=== PATIENT | male | born 1955 | race Caucasian/White ===

== ENCOUNTER 2020-08-24 08:38 | Outpatient (NON) | payer MEDICARE, BC, SELFPAY ==
[2020-08-25 18:45] LABS: SARS-CoV-2 RNA PCR Negative
== END 2020-08-24 08:39 ==
PROVIDERS: PCP Family Medicine; Visit Provider Family Medicine
DX: R68.89 Other general symptoms and signs (principal); Z20.828 Contact with and (suspected) exposure to other viral communicable diseases
CPT/HCPCS: 87635; C9803; U0003

== ENCOUNTER → 2021-03-16 09:28 | Outpatient (CLI) | payer MEDICARE, SELFPAY ==
--- NOTE | ~2021-03-16 | US_ITS ---
US breast BI complete 03/16/2021 10:01 Indication: Mastodynia. No palpable lumps. Procedure: High-resolution bilateral complete breast ultrasound Comparison: No prior studies for comparison. Findings: There is bilateral asymmetric gynecomastia of the breasts, left greater than right. No disc rete mass identified. Impression: 1: Bilateral asymmetric gynecomastia. No sonographic evidence for malignancy. BI-RADS CATEGORY 2 - BENIGN FINDINGS Reviewed, dictated and finalized at location A. Impression: 1: Bilateral asymmetric gynecomastia. No sonographic evidence for malignancy. BI-RADS CATEGORY 2 - BENIGN FINDINGS
== END ==
PROVIDERS: PCP Family Medicine; Visit Provider Physician Assistant
DX: N64.4 Mastodynia (principal)
CPT/HCPCS: 76641

== ENCOUNTER → 2021-04-08 15:28 | Outpatient (CLI) | payer MEDICARE, SELFPAY ==
--- NOTE | ~2021-04-08 | US_ITS ---
EXAMINATION: US scrotum doppler DATE: 04/08/2021 16:05 INDICATION: Orchialgia TECHNIQUE: Testicular sonogram utilizing grayscale and Doppler COMPARISON: None. FINDINGS: The right testis measures 4.9 x 2.2 x 2.5 cm. The left testis measures 3.9 x 2.0 x 2.5 cm. Symmetric normal grayscale appearance to both testes. There is normal vascular flow to both testes. The right e pididymis is normal with normal vascular flow. The left epididymis is normal with normal vascular christina w. Small right hydrocele. IMPRESSION: 1. Small right hydrocele. Normal bilateral testes and epididymides. Reviewed, dictated and finalized at location A.
== END ==
PROVIDERS: PCP Family Medicine; Visit Provider Urology
DX: N50.819 Testicular pain, unspecified (principal); N43.3 Hydrocele, unspecified
CPT/HCPCS: 76870; 93976

== ENCOUNTER 2021-12-17 23:32 | Emergency (ER) | payer MEDICARE, SELFPAY ==
[2021-12-17 23:35] VITALS: BP 151/78; PULSE 59; RESP 14; TEMP 36.5; O2SAT 97
[2021-12-17 23:56] LABS: Add Urine Microscopic? NO; Appearance Urine Clear (Clear); Bilirubin Urine Negative (Negative); Blood Urine Negative (Negative); Color Urine Straw (Yellow); Glucose Urine UA Negative (Negative); Ketones Urine Negative (Negative); Leukocyte Esterase Ur Negative LEU/UL (Negative); Nitrate Urine Negative (Negative); Protein Urine Negative (Negative); Specific Grav Ur 1.008 (1.001-1.035); Urobilinogen Urine Negative mg/dL (<2.0)
--- NOTE | 2021-12-18 00:15 | ED.MALEGU ---
HPI - Male Genitourinary General Chief complaint: Urogenital-Male Stated complaint: UTI? Time Seen by Provider: 12/17/21 23:35 History of Present Illness HPI Narrative: 66-year-old male presented to the emergency room for evaluation of dysuria. Patient states that he has had some painful urination for the past 3 days. Denies abdominal pain, fever, testicular pain. No concerns over STDs. Patient states he was seen in his primary care physician on Monday, and had a digital rectal exam to evaluate his prostate. Patient was told during that exam that is stable appeared to be normal. Patient denies any hematuria or purulent drainage. Related Data Home Medications Medication Instructions Recorded Confirmed clonazepam 2 mg tablet See Rx Instructions PO DAILY 10/29/19 12/06/21 gabapentin 300 mg capsule 300 mg PO BID 10/29/19 12/06/21 Allergies Allergy/AdvReac Type Severity Reaction Status Date / Time tetracycline Allergy Unknown pancreatiti Verified 12/06/21 14:52 s Review of Systems Review of Systems: CONSTITUTIONAL: Denies fever, chills, or sweats. EYES: Denies visual changes, redness, or discharge. ENT: Denies rhinorrhea, congestion, sore throat, or otalgia. CARDIOVASCULAR: Denies chest pain, palpitations, or edema. RESPIRATORY: Denies cough or dyspnea. GASTROINTESTINAL: Denies abdominal pain, nausea, vomiting, or diarrhea. GENITOURINARY: Reports dysuria SKIN: Denies rash or itching. MUSCULOSKELETAL: Denies back pain, joint pain, or myalgia. NEUROLOGIC: Denies headache, numbness, dizziness, or weakness. PSYCHIATRIC: Denies anxiety or depression. [facility] Surgical History Surgical History H/O arthroscopic knee surgery H/O hernia repair History of hip replacement History of knee replacement History of vasectomy Family History Family History Father Family history of thyroid disease, Onset Age: 93 Depression, Onset Age: 93 Family history of arthritis, Onset Age: 93 Family history of dementia, Onset Age: 93 Sibling Family history of mental disorder Depression Mother Family history of cardiovascular disease, Onset Age: 92 Other Cerebrovascular accident Social History Social History Second hand tobacco smoke exposure: No Alcohol intake: never Substance use: never Substance use type: does not use Gender identity (if verbalized by the patient): Male Exam Narrative: GENERAL: Well-appearing, well-nourished, and in no acute distress. HEAD: Normocephalic, atraumatic. EYES: PERRLA and EOMI. CHEST: Clear to auscultation. No respiratory distress. No wheezes rales or rhonchi HEART: Regular rate and rhythm. No murmur heard. Normal peripheral pulses. ABDOMEN: Soft, nontender, nondistended, normal active bowel sounds. No suprapubic tenderness EXTREMITIES: Normal range of motion. No edema. SKIN: Warm, dry, no rash. NEURO: No focal deficits. Alert and oriented x3. PSYCH: Normal mood and affect. Course Vital Signs Vital signs: Vital Signs Temperature 36.5 C 12/17/21 23:35 Pulse Rate 59 L 12/17/21 23:35 Respiratory Rate 14 12/17/21 23:35 Blood Pressure 151/78 H 12/17/21 23:35 Pulse Oximetry 97 12/17/21 23:35 Temperature 36.5 C 12/17/21 23:35 Pulse Rate 59 L 12/17/21 23:35 Respiratory Rate 14 12/17/21 23:35 Blood Pressure 151/78 H 12/17/21 23:35 Pulse Oximetry 97 12/17/21 23:35 MDM - Male Genitourinary MDM Narrative Medical decision making narrative: 66-year-old male presented to emergency room for evaluation of dysuria which have been present for 3 days. Patient states that he had a prostate exam 5 days ago, and has primary care physician was found to be normal. Patient states he is experiencing mild dysuria prior to initiation of urination and ceases before he complet
[2021-12-18 01:11] LABS: Prostate Specific Antigen 3.4 ng/mL (< OR = 4.0)
[2021-12-18] MEDS: TAMSULOSIN HCL 0.4 MG CAPSULE PO (01:27)
== END 2021-12-18 01:30 | disposition home or self-care (01) ==
PROVIDERS: Emergency Provider Nurse Practitioner Family; PCP Family Medicine
DX: R30.0 Dysuria (principal); Z96.649 Presence of unspecified artificial hip joint; Z96.659 Presence of unspecified artificial knee joint
CPT/HCPCS: 36415; 81003; 84153; 99283; A9270

== ENCOUNTER 2022-02-24 11:08 | Emergency (ER) | payer MEDICARE, SELFPAY ==
[2022-02-24] VITALS (13 sets, daily range): BP systolic 103–123; BP diastolic 60–80; PULSE 39–49; RESP 11–20; TEMP 36.6; O2SAT 96–99
--- NOTE | ~2022-02-24 | XR_ITS ---
EXAMINATION: XR chest 2V 02/24/2022 13:08 INDICATION: Syncope and weakness. PROCEDURE: 2 view chest COMPARISON: 10/12/2018 FINDINGS: The lungs are clear. The cardiomediastinal silhouette is within normal limits. There are no pleural effusions. There is no pneumothorax suspected. IMPRESSION: 1: NO ACUTE CARDIOPULMONARY DISEASE. Reviewed, dictated and finalized at location A.
--- NOTE | 2022-02-24 11:14 | ECG_ITS ---
Measurements Intervals [place] Rate: 45 P: 11 NM: 168 QRS: 3 QRSD: 99 T: 6 QT: 418 QTc: 362 Interpretive Statements SINUS BRADYCARDIA MODERATE VOLTAGE CRITERIA FOR LVH, CONSIDER NORMAL VARIANT [MEETS CRITERIA IN ONE OF: R(aVL), S(V1), R(V5), R(V5/V6)+S(V1)] NO PREVIOUS ECG AVAILABLE FOR COMPARISON Electronically Signed On 02-24-2022 18:06:26 CDT by Precious Pryor M.D.
[2022-02-24 11:31] LABS: Basophils Percent Auto 0.5 % (0.2-1.2); Eosinophils Absolute Auto 0.2 K/mm3 (0-0.3); Eosinophils Percent Auto 2.5 % (0-4.4); Hematocrit 41.9 % (42.0-52.0); Hemoglobin 13.7 g/dL (14.0-18.0); Immature Granulocyte Absolute 0.02 K/mm3 (0.00-0.031); Immature Granulocyte Percent A 0.2 % (0-0.5); Lymphocytes Absolute Auto 1.42 K/mm3 (0.9-3.2); Lymphocytes Percent Auto 16.4 % (18.3-44.2); Mean Corpuscular HGB Conc 32.7 g/dl (32-36); Mean Corpuscular Hemoglobin 29.8 pg (26-34); Mean Corpuscular Volume 91.1 fl (80-100); Mean Platelet Volume 10.6 fl (7.4-10.4); Monocytes Absolute Auto 0.6 K/mm3 (0.1-0.6); Monocytes Percent Auto 6.5 % (2.6-8.5); Neutrophils Absolute Auto 6.4 K/mm3 (1.3-6.7); Neutrophils Percent Auto 73.9 % (45.5-73.1); Platelet Count Result 163 k/mm3 (150-375); Red Cell Distribution Width 14.5 % (11.5-14.5); White Blood Count 8.6 K/mm3 (4.5-10.0)
[2022-02-24 11:41] LABS: Alanine Aminotransferase 21 U/L (6-50); Albumin Level 4.1 g/dL (3.5-5.1); Alkaline Phosphatase 72 U/L (38-126); Anion Gap 7 mmol/L (8-16); Aspartate Amino Transferase 25 U/L (17-59); Bilirubin,Total 1.2 mg/dL (0.2-1.3); Blood Urea Nitrogen 22 mg/dL (9-20); Calcium 8.6 mg/dL (8.4-10.2); Carbon Dioxide 26 mmol/L (22-30); Chloride 106 mmol/L (98-107); Estimated CRCL calculation 53 ml/min; Estimated Glomerular Filt Rate 55; Glucose 95 mg/dL (65-110); Potassium 4.2 mmol/L (3.4-5.0); Sodium 139 mmol/L (137-145)
--- NOTE | 2022-02-24 12:31 | ED.SYNCOPE ---
HPI - Syncope General Chief Complaint: Syncope Stated Complaint: syncopal episode? Time Seen by Provider: 02/24/22 12:12 Source: patient Mode of arrival: ambulatory History of Present Illness HPI narrative: This is a 66-year-old male past medical history of rheumatoid arthritis who presents after a syncopal episode today. 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 Patient states he woke up on the floor, did not have any pain, and was able to return to his normal self, including standing on his own from the floor and walking. This is the first time this has happened. He states he does have intermittent episodes of lightheadedness with standing. He is otherwise tolerating food and fluids without difficulty and denies recent illness. He recent fevers, chills, chest pain, shortness of breath, bleeding from any source, diarrhea or vomiting. Related Data Home Medications Medication Instructions Recorded Confirmed clonazepam 2 mg tablet See Rx Instructions PO DAILY 10/29/19 12/20/21 gabapentin 300 mg capsule 300 mg PO BID 10/29/19 12/20/21 tizanidine 4 mg tablet 4 mg 02/24/22 Allergies Allergy/AdvReac Type Severity Reaction Status Date / Time tetracycline Allergy Unknown pancreatiti Verified 02/24/22 12:11 s Review of Systems Review of Systems: CONSTITUTIONAL: Denies fever, chills, or sweats. EYES: Denies visual changes, redness, or discharge. ENT: Denies rhinorrhea, congestion, sore throat, or otalgia. CARDIOVASCULAR: Denies chest pain, palpitations, or edema. RESPIRATORY: Denies cough or dyspnea. GASTROINTESTINAL: Denies abdominal pain, nausea, vomiting, or diarrhea. GENITOURINARY: Denies dysuria or hematuria. MUSCULOSKELETAL: Denies back pain, joint pain, or myalgia. NEUROLOGIC: Denies headache, numbness, dizziness, or weakness. PSYCHIATRIC: Denies anxiety or depression. [facility] Past Medical History Medical History (Updated 02/24/22 @ 21:58 by Dontae Peters MD) Benign positional vertigo Body mass index [BMI] 25.0-25.9, adult (03/26/19) Tic disorder, unspecified Surgical History Surgical History H/O arthroscopic knee surgery H/O hernia repair History of hip replacement History of knee replacement History of vasectomy Family History Family History Father Family history of thyroid disease, Onset Age: 93 Depression, Onset Age: 93 Family history of arthritis, Onset Age: 93 Family history of dementia, Onset Age: 93 Sibling Family history of mental disorder Depression Mother Family history of cardiovascular disease, Onset Age: 92 Other Cerebrovascular accident Social History Social History Second hand tobacco smoke exposure: No Alcohol intake: never Substance use: never Substance use type: does not use Gender identity (if verbalized by the patient): Male Exam Narrative: GENERAL: Well-appearing, well-nourished, and in no acute distress. HEAD: Normocephalic, atraumatic. EYES: PERRLA and EOMI. ENT: Nares clear, no rhinorrhea or epistaxis. Mucous membranes moist. Oropharynx without tonsillar hypertrophy exudate or other lesions. NECK: Supple. No midline spine tenderness to palpation, no adenopathy or masses. No carotid bruits or JVD CHEST: Clear to auscultation. No respiratory distress. No wheezes rales or rhonchi HEART: Regular rate and rhythm. No murmur heard. Normal peripheral pulses. ABDOMEN: Soft, nontender, nondistended, normal active bowel sounds. EXTREMITIES: Normal range of motion. No edema. SKIN: Warm, dry, no rash. NEURO: No focal deficits. Alert and oriented x3. PSYCH: Normal mood and affect. Course Vital Signs Vital signs: Vital Signs Temperat
[2022-02-24 12:44] LABS: Add Urine Microscopic? NO; Appearance Urine Clear (Clear); Bilirubin Urine Negative (Negative); Blood Urine Negative (Negative); Color Urine Yellow (Yellow); Glucose Urine UA Negative (Negative); Ketones Urine Negative (Negative); Leukocyte Esterase Ur Negative LEU/UL (Negative); Nitrate Urine Negative (Negative); Protein Urine Negative (Negative); Specific Grav Ur 1.015 (1.001-1.035); Urobilinogen Urine 0.2 mg/dL (<2.0); pH Urine 6.5 (5.0-9.0)
[2022-02-24] MEDS: SODIUM CHLORIDE 0.9% IV 1,000 ML 999 ML IV CONT (12:51)
== END 2022-02-24 15:12 | disposition home or self-care (01) ==
PROVIDERS: Emergency Medicine; Emergency Provider Preventive Medicine Aerospace Medicine; PCP Family Medicine
DX: R55 Syncope and collapse (principal); E86.0 Dehydration; M06.9 Rheumatoid arthritis, unspecified; F95.9 Tic disorder, unspecified; Z96.649 Presence of unspecified artificial hip joint; Z96.659 Presence of unspecified artificial knee joint; R00.1 Bradycardia, unspecified
CPT/HCPCS: 36415; 71046; 80053; 81003; 85025; 93005; 96360; 99284; J7030

== ENCOUNTER 2022-06-06 15:45 | Outpatient (CLI) | payer MEDICARE, SELFPAY ==
[2022-06-06 16:00] LABS: Basophils Absolute Auto 0.1 K/mm3 (0.0-0.1); Basophils Percent Auto 0.8 % (0.2-1.2); Eosinophils Absolute Auto 0.8 K/mm3 (0-0.3); Eosinophils Percent Auto 13.5 % (0-4.4); Hematocrit 44.4 % (42.0-52.0); Hemoglobin 14.6 g/dL (14.0-18.0); Immature Granulocyte Absolute 0.02 K/mm3 (0.00-0.031); Immature Granulocyte Percent A 0.3 % (0-0.5); Lymphocytes Absolute Auto 1.39 K/mm3 (0.9-3.2); Lymphocytes Percent Auto 23.2 % (18.3-44.2); Mean Corpuscular HGB Conc 32.9 g/dl (32-36); Mean Corpuscular Hemoglobin 29.7 pg (26-34); Mean Corpuscular Volume 90.4 fl (80-100); Mean Platelet Volume 9.8 fl (7.4-10.4); Monocytes Absolute Auto 0.5 K/mm3 (0.1-0.6); Monocytes Percent Auto 7.8 % (2.6-8.5); Neutrophils Absolute Auto 3.3 K/mm3 (1.3-6.7); Neutrophils Percent Auto 54.4 % (45.5-73.1); Platelet Count Result 189 k/mm3 (150-375); Red Blood Count 4.91 M/mm3 (4.6-6.20)
[2022-06-06 16:34] LABS: Alanine Aminotransferase 77 U/L (6-50); Albumin Level 4.6 g/dL (3.5-5.1); Alkaline Phosphatase 132 U/L (38-126); Anion Gap 7 mmol/L (8-16); Aspartate Amino Transferase 111 U/L (17-59); Bilirubin,Total 0.7 mg/dL (0.2-1.3); Blood Urea Nitrogen 25 mg/dL (9-20); Calcium 9.4 mg/dL (8.4-10.2); Carbon Dioxide 33 mmol/L (22-30); Chloride 102 mmol/L (98-107); Estimated Glomerular Filt Rate 51; Glucose 99 mg/dL (65-110); Lactate Dehydrogenase 212 U/L (120-246); Potassium 4.6 mmol/L (3.4-5.0); Sodium 142 mmol/L (137-145)
[2022-06-09 17:30] LABS: Testosterone Free 78.9 pg/mL (35.0-155.0); Testosterone Total 526 ng/dL (250-1100)
== END 2022-06-06 15:46 | disposition home or self-care (01) ==
LOC: ANHLAB 15:46
PROVIDERS: PCP Family Medicine; Visit Provider Internal Medicine Hematology & Oncology
DX: E34.9 Endocrine disorder, unspecified (principal); C85.90 Non-Hodgkin lymphoma, unspecified, unspecified site
CPT/HCPCS: 36415; 80053; 83615; 84402; 84403; 84443; 85025; 88184

== ENCOUNTER 2022-06-28 07:29 | Outpatient (CLI) | payer MEDICARE, SELFPAY ==
--- NOTE | ~2022-06-28 | CT_ITS ---
EXAMINATION: CT chest abdomen pelvis w con DATE: 06/28/2022 08:00 INDICATION: Non-Hodgkin's lymphoma TECHNIQUE: Computed tomography (CT) of the chest, abdomen, and pelvis was performed with 100 CC Omnip aque 350 intravenous contrast. Automated exposure control and iterative reconstruction technique were employed. Exam dose: 742.02 mGy-cm total exam DLP. COMPARISON: 02/24/2022 2 view chest 10/22/2018 CT chest 09/02/2014 CT abdomen pelvis FINDINGS: CHEST CT: There is mild atelectasis in the lower lung zones. There are focal up to 6 mm nodular densities in the anterior segment of the left upper lobe (series 4 image 41). 5 mm benign appearing calcified opacity is noted in the middle lobe (image 62). No thoracic aortic aneurysm or dissection. No hilar or mediastinal mass lesion or lymphadenopathy. He art size is within normal range. No pericardial or pleural effusion. Small sliding hiatal hernia. ABDOMEN/PELVIS CT: The liver, gallbladder, bile ducts, spleen, pancreas and pancreatic duct are unremarkable. Normal morphology of the adrenal glands. 2.2 cm and 1 cm right renal cysts. No suspicious renal mass lesion or urinary tract calculus or hydro ureteronephrosis is detected. There is moderate diffuse thickening of the urinary bladder wall, likely due to prostate enlargement. Some prostate calcification is noted. There is extensive streak artifact from bilateral hip replacements, which interferes with visualizati on of some the pelvic contents. There is a very prominent amount of fecal material throughout the colon. Normal appendix. No bowel ob struction or intraperitoneal free air. Normal caliber of the abdominal aorta. No intraperitoneal or retroperitoneal or pelvic mass lesion or adenopathy or ascites. Minimal nonspecific free fluid in the lower dependent pelvic cavity. No suspicious osteolytic or osteoblastic lesions are noted. Status post bilateral total hip arthroplasty. IMPRESSION: New focal up to 6 mm nodular densities in the anterior segment of the left upper lobe si nce 10/22/2018; six-month follow-up CT thorax imaging is recommended No thoracic, abdominal or pelvic lymphadenopathy Right renal cysts Prostate enlargement, likely responsible for moderate diffuse bladder wall thickening Prominent amount of fecal material throughout the colon; no bowel obstruction Normal appendix Reviewed, dictated and finalized at Location A. Reviewed, dictated and finalized at location A. IMPRESSION: New focal up to 6 mm nodular densities in the anterior segment of the left upper lobe since 10/22/2018; six-month follow-up CT thorax imaging is r ecommended No thoracic, abdominal or pelvic lymphadenopathy Right renal cysts Prostate enlargement, likely responsible for moderate diffuse bladder wall thic kening Prominent amount of fecal material throughout the colon; no bowel obstruction Normal appendix
== END 2022-06-28 07:30 | disposition home or self-care (01) ==
PROVIDERS: PCP Family Medicine; Visit Provider Internal Medicine Hematology & Oncology
DX: C85.90 Non-Hodgkin lymphoma, unspecified, unspecified site (principal); N28.1 Cyst of kidney, acquired; N40.0 Benign prostatic hyperplasia without lower urinary tract symptoms
CPT/HCPCS: 71260; 74177; Q9967

== ENCOUNTER → 2022-08-01 08:59 | Outpatient (CLI) | payer MEDICARE, SELFPAY ==
--- NOTE | ~2022-08-01 | US_ITS ---
US abdomen limited INDICATION: Abnormal levels of serum enzymes PROCEDURE: Realtime right upper abdominal ultrasound. COMPARISON: No prior studies for comparison. FINDINGS: The pancreas is normal without focal mass or pancreatic ductal dilation. Liver echotexture is normal without focal mass or intrahepatic biliary dilatation. There is normal directional flow i n the portal vein. The gallbladder is normal without stones, gallbladder wall thickening or pericholecystic fluid. Comm on bile duct measures 4 mm. No sonographic Mckeon's sign. There is a right renal cyst measuring 2.8 cm. IMPRESSION: 1: Unremarkable limited abdominal ultrasound. Reviewed, dictated and finalized at location A. RONMENTAL QUALITY ANALYST
== END ==
PROVIDERS: PCP Family Medicine; Visit Provider Physician Assistant
DX: R74.8 Abnormal levels of other serum enzymes (principal)
CPT/HCPCS: 76705

== ENCOUNTER 2023-01-04 08:25 | Outpatient (CLI) | payer MEDICARE, SELFPAY ==
--- NOTE | ~2023-01-04 | CT_ITS ---
Clinical Indication: Lung nodule CT Scan of the Chest with Contrast: Technique: Contiguous sections were acquired throughout the chest after intravenous administration of 75 cc of Omnipaque 350. Dose reduction technique was used on this scan by utilizing automated exposu re control and iterative reconstruction technique. The dose-length product (DLP) was 202.25 mGy-cm. COMPARISON: 06/28/2022 Findings: There is no evidence of any significant mediastinal, hilar or axillary lymphadenopathy. There is no f illing defect in the pulmonary arterial tree to suggest pulmonary embolus. There is no evidence of ao rtic dissection or aneurysm. There is no evidence of pleural or pericardial effusion. Stable area of adjacent pulmonary nodularity in the left upper lobe (axial images 38-40). No other pu lmonary abnormality seen. Images through the upper abdomen reveal no abnormalities. Impression: Stable adjacent nodules in the left upper lobe, as detailed above. Continued follow-up advised to doc ument 2 years of stability. Reviewed, dictated and finalized at location . Impression: Stable adjacent nodules in the left upper lobe, as detailed above. Continued fo llow-up advised to document 2 years of stability.
[2023-01-04 08:51] LABS: Estimated Glomerular Filt Rate 55
== END 2023-01-04 08:26 | disposition home or self-care (01) ==
PROVIDERS: PCP Family Medicine; Visit Provider Internal Medicine Hematology & Oncology
DX: R91.1 Solitary pulmonary nodule (principal)
CPT/HCPCS: 71260; Q9967

== ENCOUNTER 2023-01-11 09:44 | Outpatient (CLI) | payer MEDICARE, SELFPAY ==
[2023-01-11 09:55] LABS: Basophils Percent Auto 0.6 % (0.2-1.2); Eosinophils Absolute Auto 0.2 K/mm3 (0-0.3); Eosinophils Percent Auto 2.2 % (0-4.4); Hematocrit 41.6 % (42.0-52.0); Hemoglobin 13.9 g/dL (14.0-18.0); Immature Granulocyte Absolute 0.03 K/mm3 (0.00-0.031); Immature Granulocyte Percent A 0.4 % (0-0.5); Lymphocytes Absolute Auto 1.17 K/mm3 (0.9-3.2); Mean Corpuscular HGB Conc 33.4 g/dl (32-36); Mean Corpuscular Hemoglobin 30.3 pg (26-34); Mean Corpuscular Volume 90.8 fl (80-100); Mean Platelet Volume 10.5 fl (7.4-10.4); Monocytes Absolute Auto 0.5 K/mm3 (0.1-0.6); Monocytes Percent Auto 6.7 % (2.6-8.5); Neutrophils Percent Auto 73.1 % (45.5-73.1); Platelet Count Result 175 k/mm3 (150-375); Red Blood Count 4.58 M/mm3 (4.6-6.20); Red Cell Distribution Width 14.3 % (11.5-14.5); White Blood Count 6.9 K/mm3 (4.5-10.0)
[2023-01-11 10:00] LABS: Blood Urea Nitrogen 20 mg/dL (8-26); Carbon Dioxide 27 mmol/L (22-30); Chloride 102 mmol/L (98-109); Estimated Glomerular Filt Rate 60; Glucose 105 mg/dL (70-105); Ionized Calcium (POC) 1.14 mmol/L (1.11-1.31); Potassium 3.9 mmol/L (3.5-4.9); Sodium 140 mmol/L (138-146)
[2023-01-11 11:23] LABS: Alanine Aminotransferase 76 U/L (6-50); Albumin Level 4.3 g/dL (3.5-5.1); Alkaline Phosphatase 118 U/L (38-126); Anion Gap 8 mmol/L (8-16); Aspartate Amino Transferase 51 U/L (17-59); Bilirubin,Total 0.4 mg/dL (0.2-1.3); Blood Urea Nitrogen 20 mg/dL (9-20); Calcium 8.6 mg/dL (8.4-10.2); Carbon Dioxide 29 mmol/L (22-30); Chloride 102 mmol/L (98-107); Estimated Glomerular Filt Rate > 60; Glucose 104 mg/dL (65-110); Potassium 3.9 mmol/L (3.4-5.0); Sodium 139 mmol/L (137-145)
== END 2023-01-11 09:45 | disposition home or self-care (01) ==
LOC: ANHLAB 09:45
PROVIDERS: PCP Family Medicine; Visit Provider Internal Medicine Hematology & Oncology
DX: R61 Generalized hyperhidrosis (principal)
CPT/HCPCS: 36415; 80047; 80053; 85025

== ENCOUNTER 2023-06-06 12:34 | Outpatient (CLI) | payer MEDICARE, SELFPAY ==
[2023-06-06 18:56] LABS: Alanine Aminotransferase 45 U/L (6-50); Albumin Level 4.3 g/dL (3.5-5.1); Alkaline Phosphatase 100 U/L (38-126); Anion Gap 6 mmol/L (8-16); Aspartate Amino Transferase 44 U/L (17-59); Bilirubin,Total 0.6 mg/dL (0.2-1.3); Blood Urea Nitrogen 18 mg/dL (9-20); Calcium 8.8 mg/dL (8.4-10.2); Carbon Dioxide 33 mmol/L (22-30); Chloride 102 mmol/L (98-107); Cholesterol 188 mg/dL (0-200); Estimated Glomerular Filt Rate > 60; Glucose 89 mg/dL (65-110); HDL Direct 45 mg/dL; Potassium 4.3 mmol/L (3.4-5.0); Sodium 141 mmol/L (137-145); Triglycerides 117 mg/dL (<150); Uric Acid 5.3 mg/dL (3.5-8.5)
[2023-06-06 19:07] LABS: LDL Cholesterol Direct 102 mg/dL
[2023-06-06 19:30] LABS: Prostate Specific Antigen 3.1 ng/mL (< OR = 4.0)
[2023-06-06 19:32] LABS: Free T4 Free Thyroxine 0.86 ng/mL (0.78-2.19)
[2023-06-06 19:50] LABS: Hematocrit 45.9 % (42.0-52.0); Hemoglobin 15.1 g/dL (14.0-18.0); Mean Corpuscular HGB Conc 32.9 g/dl (32-36); Mean Corpuscular Volume 94.3 fl (80-100); Mean Platelet Volume 11.5 fl (7.4-10.4); Platelet Count Result 161 k/mm3 (150-375); Red Blood Count 4.87 M/mm3 (4.6-6.20); Red Cell Distribution Width 13.4 % (11.5-14.5); White Blood Count 4.7 K/mm3 (4.5-10.0)
== END 2023-06-06 12:35 | disposition home or self-care (01) ==
PROVIDERS: PCP Family Medicine; Visit Provider Family Medicine
DX: E03.9 Hypothyroidism, unspecified (principal); F33.1 Major depressive disorder, recurrent, moderate; M10.00 Idiopathic gout, unspecified site; R91.1 Solitary pulmonary nodule; Z79.899 Other long term (current) drug therapy; Z12.5 Encounter for screening for malignant neoplasm of prostate
CPT/HCPCS: 36415; 80053; 80061; 84153; 84439; 84443; 84550; 85027; G0103

== ENCOUNTER 2023-06-16 11:20 | Outpatient (CLI) | payer MEDICARE, SELFPAY ==
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
== END 2023-06-16 11:21 ==
PROVIDERS: PCP Family Medicine; Visit Provider Nurse Practitioner Family
DX: M25.462 Effusion, left knee (principal); M11.20 Other chondrocalcinosis, unspecified site; M17.12 Unilateral primary osteoarthritis, left knee
CPT/HCPCS: 73564

== ENCOUNTER 2023-06-29 15:25 | Emergency (ER) | payer MEDICARE, SELFPAY ==
--- NOTE | ~2023-06-29 | US_ITS ---
EXAMINATION:US venous doppler LE LT INDICATION:Rule out DVT TECHNIQUE: Multiple grayscale, color flow and Doppler images of the left lower extremity deep venous systems were obtained and reviewed. COMPARISON:No prior studies for comparison. FINDINGS: The common femoral, superficial femoral and popliteal veins demonstrate normal respiratory variation, augmentation and compressibility. Color flow is also seen within the posterior tibial, pe roneal, greater saphenous and profunda veins. IMPRESSION: 1: No lower extremity deep venous thrombosis. Reviewed, dictated and finalized at location A.
[2023-06-29 15:33] VITALS: BP 112/53; PULSE 60; RESP 16; TEMP 36.4; O2SAT 96
[2023-06-29 16:11] VITALS: BP 140/79; PULSE 56; RESP 18; O2SAT 95
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
[2023-06-29 18:10] VITALS: BP 126/77; PULSE 58; RESP 16; O2SAT 98
[2023-06-29 19:22] VITALS: BP 152/88; PULSE 45; RESP 14; TEMP 36.4; O2SAT 97
--- NOTE | 2023-06-29 19:26 | PC.NURSE ---
patients pulse was measured at 45 bpm. Per patient that is normal for him. When asked if the patient took a beta richie the patient stated no.
== END 2023-06-29 19:50 | disposition home or self-care (01) ==
PROVIDERS: Emergency Provider Physician Assistant; PCP Family Medicine
DX: M79.605 Pain in left leg (principal); E03.9 Hypothyroidism, unspecified; M10.00 Idiopathic gout, unspecified site; G60.9 Hereditary and idiopathic neuropathy, unspecified; N40.0 Benign prostatic hyperplasia without lower urinary tract symptoms; N32.81 Overactive bladder; F33.8 Other recurrent depressive disorders; F95.9 Tic disorder, unspecified; Z96.643 Presence of artificial hip joint, bilateral; Z96.651 Presence of right artificial knee joint
CPT/HCPCS: 93971; 99284

== ENCOUNTER 2023-07-03 08:43 | Outpatient (CLI) | payer MEDICARE, SELFPAY ==
--- NOTE | ~2023-07-03 | CT_ITS ---
Clinical Indication: Pulmonary nodule CT Scan of the Chest with Contrast: Technique: Contiguous sections were acquired throughout the chest after intravenous administration of 75 cc of Omnipaque 350. Dose reduction technique was used on this scan by utilizing automated exposu re control and iterative reconstruction technique. The dose-length product (DLP) was 213.64 mGy-cm. COMPARISON: 01/04/2023 and 06/28/2022 Findings: There is no evidence of any significant mediastinal, hilar or axillary lymphadenopathy. There is no f illing defect in the pulmonary arterial tree to suggest pulmonary embolus. There is no evidence of ao rtic dissection or aneurysm. There is no evidence of pleural or pericardial effusion. Stable adjacent pulmonary nodules in the left upper lobe (axial image [id number]). Images through the upper abdomen reveal no abnormalities. Impression: Stable left upper lobe pulmonary nodules. One-year follow-up exam recommended to complete 2 years of surveillance. Reviewed, dictated and finalized at [facility]. FITTER HELPER Impression: Stable left upper lobe pulmonary nodules. One-year follow-up exam recommended t o complete 2 years of surveillance.
== END 2023-07-03 08:44 | disposition home or self-care (01) ==
PROVIDERS: PCP Family Medicine; Visit Provider Internal Medicine Hematology & Oncology
DX: R91.1 Solitary pulmonary nodule (principal)
CPT/HCPCS: 71260; Q9967

== ENCOUNTER 2023-09-11 10:40 | Outpatient (CLI) | payer MEDICARE, SELFPAY ==
[2023-09-11 11:19] LABS: Alanine Aminotransferase 29 U/L (6-50); Aspartate Amino Transferase 37 U/L (17-59)
== END 2023-09-11 10:41 | disposition home or self-care (01) ==
PROVIDERS: PCP Family Medicine; Visit Provider Podiatrist Foot & Ankle Surgery
DX: B35.1 Tinea unguium (principal)
CPT/HCPCS: 36415; 84450; 84460

== ENCOUNTER → 2023-10-11 14:37 | Outpatient (CLI) | payer MEDICARE, SELFPAY ==
--- NOTE | ~2023-10-11 | XR_ITS ---
XR hand RT min 3V DATE: 10/11/2023 14:47 INDICATION: Pain at right second and third fingers for 2 days TECHNIQUE: 3 views of right hand COMPARISON: None FINDINGS: There is polyarticular osteoarthritis, mild to moderate at the first carpometacarpal, first metacarpophalangeal joints, more prominent at the interphalangeal joint of the first digit, with les ser involvement of other interphalangeal joints. Benign cysts of the navicular bone and the carpal he ads. No fracture, dislocation, periosteal reaction or bone destruction is detected. IMPRESSION: Polyarticular osteoarthritis Reviewed, dictated and finalized at location B. S REPRESENTATIVE
== END ==
PROVIDERS: PCP Family Medicine; Visit Provider Nurse Practitioner Family
DX: M19.041 Primary osteoarthritis, right hand (principal)
CPT/HCPCS: 73130

== ENCOUNTER 2023-11-08 12:53 | Outpatient (CLI) | payer MEDICARE, SELFPAY ==
--- NOTE | 2023-11-08 14:00 | NEURO_ITS ---
Impression: # Non-diabetic complains of right hand numbness. # Right Carpal Tunnel Syndrome. # No ulnar neuropathy. # Mildly abnormal Needle/EMG exam in 1st DI. Nerve Conduction Studies Anti Sensory Summary Table Stim Site NR Peak (ms) P-T Amp (?V) Site1 Site2 Delta-P (ms) Dist (cm) Evert (m/s) Right Median Anti Sensory (2-3nd Digit) Wrist 4.5 11.0 Wrist 2-3nd Digit 4.5 14.0 31 Wrist 4.7 5.0 Wrist 2-3nd Digit 4.5 14.0 31 Right Radial Anti Sensory (Base 1st Digit) Wrist 2.0 38.2 Wrist Base 1st Digit 2.0 0.0 Right Ulnar Anti Sensory (5th Digit) Wrist 2.8 36.7 Wrist 5th Digit 2.8 14.0 50 Motor Summary Table Stim Site NR Onset (ms) O-P Amp (mV) Site1 Site2 Delta-0 (ms) Dist (cm) Evert (m/s) Right Median Motor (Abd Poll Brev) Wrist 3.6 2.7 Elbow Wrist 6.9 33.0 48 Elbow 10.5 2.7 Right Ulnar Motor (Abd Dig Minimi) Wrist 2.1 7.4 A Elbow Wrist 5.6 31.0 55 A Elbow 7.7 6.2 F Wave Studies NR F-Lat (ms) L-R F-Lat (ms) Right Median (Mrkrs) (Abd Poll Brev) 32.09 Right Ulnar (Mrkrs) (Abd Dig Min) 32.15 EMG Side Muscle Nerve Root Ins Act Fibs Amp Dur Recrt Comment Right 1stDorInt Ulnar C8-T1 Nml Nml Nml Nml Nml Right Ext Indicis Radial (Post Int) C7-8 Nml Nml Nml Nml Nml Right Ext Digitorum Radial (Post Int) C7-8 Nml Nml Nml Nml Nml Right BrachioRad Radial C5-6 Nml Nml Nml Nml Nml Right PronatorTeres Median C6-7 Nml Nml Nml Nml Nml Right Abd Poll Brev Median C8-T1 Nml Nml Incr >12ms +1 Right ABD Dig Min Ulnar C8-T1 Nml Nml Nml Nml Nml Right Biceps Musculocut C5-6 Nml Nml Nml Nml Nml Right Triceps Radial C6-7-8 Nml Nml Nml Nml Nml Right Deltoid Axillary C5-6 Nml Nml Nml Nml Nml Right Abd Poll Long Radial (Post Int) C7-8 Nml Nml Nml Nml Nml Right ExtCarUln Radial (Post Int) C7-8 Nml Nml Nml Nml Nml MTDD
== END 2023-11-08 12:54 | disposition home or self-care (01) ==
LOC: ANHNEURO 12:53
PROVIDERS: PCP Family Medicine; Visit Provider Physician Assistant
DX: G56.01 Carpal tunnel syndrome, right upper limb (principal); R94.131 Abnormal electromyogram [EMG]
CPT/HCPCS: 95886; 95909

== ENCOUNTER 2023-12-11 10:20 | Outpatient (CLI) | payer MEDICARE, SELFPAY ==
[2023-12-11 11:16] LABS: Alanine Aminotransferase 32 U/L (6-50); Aspartate Amino Transferase 41 U/L (17-59)
== END 2023-12-11 10:21 | disposition home or self-care (01) ==
LOC: ANHLAB 10:23
PROVIDERS: PCP Family Medicine; Visit Provider Podiatrist Foot & Ankle Surgery
DX: B35.1 Tinea unguium (principal)
CPT/HCPCS: 36415; 84450; 84460

== ENCOUNTER 2024-04-08 10:49 | Outpatient (CLI) | payer MEDICARE, SELFPAY ==
[2024-04-08 11:56] LABS: Alanine Aminotransferase 68 U/L (6-50); Aspartate Amino Transferase 67 U/L (17-59)
== END 2024-04-08 10:50 | disposition home or self-care (01) ==
PROVIDERS: PCP Family Medicine; Visit Provider Podiatrist Foot & Ankle Surgery
DX: B35.1 Tinea unguium (principal)
CPT/HCPCS: 36415; 84450; 84460

== ENCOUNTER 2024-05-16 12:43 | Outpatient (CLI) | payer MEDICARE, SELFPAY ==
[2024-05-16 13:36] LABS: Basophils Percent Auto 0.8 % (0.2-1.2); Eosinophils Absolute Auto 0.2 K/mm3 (0-0.3); Eosinophils Percent Auto 4.4 % (0-4.4); Hematocrit 45.7 % (42.0-52.0); Hemoglobin 15.5 g/dL (14.0-18.0); Immature Granulocyte Absolute 0.01 K/mm3 (0.00-0.031); Immature Granulocyte Percent A 0.2 % (0-0.5); Lymphocytes Absolute Auto 1.61 K/mm3 (0.9-3.2); Lymphocytes Percent Auto 30.7 % (18.3-44.2); Mean Corpuscular HGB Conc 33.9 g/dl (32-36); Mean Corpuscular Volume 94.2 fl (80-100); Mean Platelet Volume 10.2 fl (7.4-10.4); Monocytes Absolute Auto 0.4 K/mm3 (0.1-0.6); Monocytes Percent Auto 7.4 % (2.6-8.5); Neutrophils Percent Auto 56.5 % (45.5-73.1); Platelet Count Result 205 k/mm3 (150-375); Red Blood Count 4.85 M/mm3 (4.6-6.20); Red Cell Distribution Width 13.7 % (11.5-14.5); White Blood Count 5.2 K/mm3 (4.5-10.0)
[2024-05-16 13:51] LABS: Alanine Aminotransferase 36 U/L (6-50); Albumin Level 4.3 g/dL (3.5-5.1); Alkaline Phosphatase 95 U/L (38-126); Anion Gap 6 mmol/L (4-12); Aspartate Amino Transferase 35 U/L (17-59); Bilirubin,Total 0.6 mg/dL (0.2-1.3); Blood Urea Nitrogen 20 mg/dL (9-20); Calcium 9.2 mg/dL (8.4-10.2); Carbon Dioxide 34 mmol/L (22-30); Chloride 99 mmol/L (98-107); Estimated Glomerular Filt Rate > 60; Glucose 95 mg/dL (65-110); Potassium 4.6 mmol/L (3.4-5.0); Sodium 139 mmol/L (137-145); Uric Acid 5.7 mg/dL (3.5-8.5)
== END 2024-05-16 12:44 | disposition home or self-care (01) ==
PROVIDERS: PCP Family Medicine; Visit Provider Family Medicine
DX: M10.00 Idiopathic gout, unspecified site (principal); E03.9 Hypothyroidism, unspecified; M06.9 Rheumatoid arthritis, unspecified
CPT/HCPCS: 36415; 80053; 84443; 84550; 85025

== ENCOUNTER 2024-07-24 11:44 | Outpatient (CLI) | payer MEDICARE, SELFPAY ==
[2024-07-24 12:00] LABS: Basophils Percent Auto 0.7 % (0.2-1.2); Eosinophils Absolute Auto 0.4 K/mm3 (0-0.3); Eosinophils Percent Auto 6.2 % (0-4.4); Hematocrit 44.1 % (42.0-52.0); Immature Granulocyte Absolute 0.01 K/mm3 (0.00-0.031); Immature Granulocyte Percent A 0.2 % (0-0.5); Lymphocytes Absolute Auto 1.75 K/mm3 (0.9-3.2); Lymphocytes Percent Auto 29.2 % (18.3-44.2); Mean Corpuscular Hemoglobin 31.2 pg (26-34); Mean Corpuscular Volume 91.7 fl (80-100); Mean Platelet Volume 10.4 fl (7.4-10.4); Monocytes Absolute Auto 0.5 K/mm3 (0.1-0.6); Monocytes Percent Auto 7.8 % (2.6-8.5); Neutrophils Absolute Auto 3.4 K/mm3 (1.3-6.7); Neutrophils Percent Auto 55.9 % (45.5-73.1); Platelet Count Result 188 k/mm3 (150-375); Red Blood Count 4.81 M/mm3 (4.6-6.20); Red Cell Distribution Width 12.8 % (11.5-14.5)
[2024-07-24 12:04] LABS: Blood Urea Nitrogen 19 mg/dL (8-26); Carbon Dioxide 29 mmol/L (22-30); Chloride 101 mmol/L (98-109); Estimated Glomerular Filt Rate 60; Glucose 90 mg/dL (70-105); Ionized Calcium (POC) 1.22 mmol/L (1.11-1.31); Potassium 4.5 mmol/L (3.5-4.9); Sodium 142 mmol/L (138-146)
[2024-07-24 16:23] LABS: Alanine Aminotransferase 58 U/L (6-50); Albumin Level 4.3 g/dL (3.5-5.1); Alkaline Phosphatase 97 U/L (38-126); Anion Gap 3 mmol/L (4-12); Aspartate Amino Transferase 47 U/L (17-59); Bilirubin,Total 0.5 mg/dL (0.2-1.3); Blood Urea Nitrogen 19 mg/dL (9-20); Calcium 9.2 mg/dL (8.4-10.2); Carbon Dioxide 33 mmol/L (22-30); Chloride 103 mmol/L (98-107); Estimated Glomerular Filt Rate > 60; Glucose 89 mg/dL (65-110); Potassium 4.6 mmol/L (3.4-5.0); Sodium 139 mmol/L (137-145)
== END 2024-07-24 11:45 | disposition home or self-care (01) ==
LOC: ANHLAB 11:45
PROVIDERS: PCP Family Medicine; Visit Provider Internal Medicine Hematology & Oncology
DX: R61 Generalized hyperhidrosis (principal)
CPT/HCPCS: 36415; 80047; 80053; 85025

== ENCOUNTER 2024-09-10 15:33 | Outpatient (CLI) | payer MEDICARE, SELFPAY ==
--- NOTE | ~2024-09-10 | CT_ITS ---
CT brain wo con Ordering provider: ZOILA JiangP-C History: 69 years Male with . Disorientation, unspecified . Comparison: None. Technique: CT of the head without contrast. Radiation reduction technique utilized. The dose-length product was 726.4 mGy-cm. FINDINGS: BRAIN PARENCHYMA AND CSF SPACES: No midline shift, mass effect or hemorrhage. The brain parenchyma a nd CSF spaces are otherwise normal. VISUALIZED PARANASAL SINUSES: Well aerated. MASTOIDS: Well aerated. BONES: The bones appear intact. SOFT TISSUES: Visualized nasopharynx is normal. Superficial soft tissues are normal. IMPRESSION: No acute intracranial findings. 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
== END 2024-09-10 15:34 | disposition home or self-care (01) ==
LOC: GOSHIMG 15:34
PROVIDERS: Visit Provider Nurse Practitioner Family
DX: R41.0 Disorientation, unspecified (principal); R26.81 Unsteadiness on feet
CPT/HCPCS: 70450

== ENCOUNTER 2024-09-16 10:11 | Outpatient (CLI) | payer MEDICARE, SELFPAY | END 2024-09-16 10:12 | disposition home or self-care (01) | PROVIDERS: PCP Family Medicine; Visit Provider Nurse Practitioner Family | DX: R41.0 Disorientation, unspecified (principal); R26.81 Unsteadiness on feet | CPT/HCPCS: 93242 ==

== ENCOUNTER 2024-09-20 14:59 | Outpatient (CLI) | payer MEDICARE, SELFPAY ==
--- NOTE | ~2024-09-20 | US_ITS ---
EXAMINATION: US carotid duplex BI DATE: 09/20/2024 15:46 INDICATION: Vertigo TECHNIQUE: Grayscale, color Doppler, and pulsed Doppler images of the cervical carotid arteries were obtained. The degree of vessel stenosis is placed in one of the following categories: normal, <50%, 5 0-69%, >=70% but less than near-occlusion, near-occlusion, or total occlusion. Note that percent sten osis relative to normal distal artery lumen diameter is indirectly measured from velocity measurement s as described by Thom, et al. Radiology 2003; 229:340-346. COMPARISON: None. FINDINGS: RIGHT: The right common carotid artery (CCA) peak systolic velocity (PSV) is 119 cm/s. The right internal ca rotid artery (ICA) PSV is 102 cm/s. The right ICA end-diastolic velocity (EDV) is 22 cm/s. The right ICA/CCA PSV ratio is 0.9. Grayscale and color Doppler images demonstrate no evident plaque or stenosi s in the ICA. The external carotid artery (ECA) PSV is 162 cm/s. There is antegrade flow in the right vertebral artery. LEFT: The left CCA PSV is 133 cm/s. The left ICA PSV is 87 cm/s. The left ICA EDV is 27 cm/s. The left ICA/ CCA PSV ratio is 0.7. Grayscale and color Doppler images demonstrated no evident plaque or stenosis i n the ICA. The ECA PSV is 131 cm/s. There is antegrade flow in the left vertebral artery. IMPRESSION: 1. No evident plaque or stenosis in the right internal carotid artery. 2. No evident plaque or stenosis in the left internal carotid artery. Reviewed, dictated and finalized at location A. [facility]
--- OUTSIDE RECORDS SUMMARY | 2024-09-20 15:05 | XMS_ITS | Encounter Summary ---
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 Never 10/10/2023 Q2: How many drinks containi ng alcohol do you have on a typical day when you are drinking? Patient does not drink Q3: How often do you have si x or more drinks on one occasion? Never 10/10/2023 Personal Safety Answer Date Recorded Getting School Help Needed Not on file 08/07 Sex and Gender Information Value Date Recorded Sex Assigned at Male 11/27/2018 11:24 AM CDT Legal Sex Male 2:36 AM [employer] Gender Identity Not on file Sexual Orientation Straight 11/27/2018 11 :24 AM CDT documented as of this encounter Plan of Treatment Not on file documented as of this encounter Procedures Procedure Name Priority Date/Time Associated Diagnosis Comments SCAN - RADIOLOGY/IMAGING 10/24/2023 documented in this encounter Results * SCAN - RADIOLOGY/IMAGING (10/24/2023) Anatomical Region Laterality Modality Other us Provider Scanning Final Result documented in this encounter Visit Diagnoses Not on filedocumented in this encounter Care Teams Wrapper Layer And Examiner Soft Work Relationship Specialty Start Date End Date Andres Parker MD PCP - General Family Medicine 04/05/22 documented as of this encounter
--- OUTSIDE RECORDS SUMMARY | 2024-09-20 15:05 | XMS_ITS | Referral Summary ---
Author Organization [facility] Address [address] [place] [address] Care Team Providers Care Junior Web Developer Name Role Phone Andres Parker MD Primary Care Provider [phone] Encounters Date Type Department Care Team Description 09/12/2024 Telephone [facility] Scheduling [address] [place] [address] Leodan Mayers MD PhD Scheduling Appointments 07/31/2024 Telephone [facility] Urology [address] [facility] [address] [place] [address] Manny Last MD 07/22/2024 Telephone [facility] Orthopaedic Surgery [address] [facility] 2nd [address] [place] [address] iLlliam Manrique CMA 07/22/2024 Telephone [facility] Urology [address] [facility] [address] [place] [phone] Yakelin Bond CMA 07/19/2024 2:45 PM ENERGY ECONOMIST - 07/19/2024 11:59 PM ENERGY ECONOMIST Hospital Encounter [facility] Radiology at [address] [address] Left foot pain; Left ankle pain, unspecified chronicity Discharge Disposition: Discharge to home or self care 07/19/2024 3:15 PM ENERGY ECONOMIST Office Visit [facility] Orthopaedic Surgery [address] [place] [address] NP Primary osteoarthritis of left ankle (Primary Dx); Left ankle pain, unspecified chronicity; Left foot pain 07/10/2024 3:20 PM ENERGY ECONOMIST Office Visit [facility] Orthopaedic Surgery [address] [facility] [address] [place] [address] Jamaal Carney MD Aftercare following right knee joint replacement surgery (Primary Dx); Primary osteoarthritis of left knee; Chronic pain of left knee 07/08/2024 Documentation [facility] Neuro Muscle [address] [facility] 6th [place] [address] [place] [address] Adele Morgan RN 07/05/2024 Telephone [facility] Movement Disorders [address] [place] [phone] Anyi Perez CMA from Last 3 Months Allergies Active Allergy Reactions Criticality Noted Date Comments Tetracycline Unknown,Rash High 10/22/2014 Pancreatitis Medications allopurinol (ZYLOPRIM) 300 mg tabletIndications :prevention of acute gout attack Take 0.5 tablets (150 mg total) by mouth every morning 8 Active clindamycin (CLEOCIN) 150 mg capsule Takes before dental appts 1 Active levothyroxine (SYNTHROID) 125 mcg tabletIndications :hypothyroidism Take 1 tablet (125 mcg total) 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 before breakfast 1 Active tadalafiL (CIALIS) 5 mg tablet Take 1 tablet (5 mg total) by mouth as needed for erectile dysfunction 2 Active triamcinolone (KENALOG) 0.1 % cream Apply 1 g topically as needed for rash or irritation 3 Active calcium carbonate (TUMS) 500 mg (200 mg elemental calcium) chewable tabletIndications :Heartburn Take 1 tablet/chew tab (500 mg total) by mouth as needed for indigestion or heartburn Active gabapentin (NEURONTIN) 300 mg capsuleIndication s:Idiopathic peripheral neuropathy TAKE 3 CAPSULES BY MOUTH IN THE MORNING AND 2 IN THE EVENING 150 capsule 4 Active oxyBUTYnin XL (DITROPAN-XL) 10 mg 24 hr tabletIndications :Bladder Hyperactivity Take 1 tablet (10 mg total) by mouth daily 30 tablet 11 4 025 Active carBAMazepine XR (TEGretol XR) 400 mg 12 hr tabletIndications :Neuralgia Take 1 tab twice daily 180 tablet 3 4 Active amoxicillin 500 mg capsule TKAE 4 CAPS 1 HOUR PRIOR TO APPOINTMENT [address] (CYMBALTA) 30 mg capsuleIndication s:Neuropathic Pain Take 2 capsules (60 mg total) by mouth every morning 180 capsule 3 4 025 Active clonazePAM (KlonoPIN) 2 mg tabletIndications :Motor Tic Disorder,tics Take 2 tablets (4 mg total) by mouth 2 (two) times a day as needed for seizures (take bid daily) 2 tabs in the morning and 2 tabs late afternoon. 360 tablet 1 4 025 Active tavaborole 5 % solution with applicator APPLY TOPICALLY TO AFFECTED AREA OF THE TOENAILS 4 Active Active Problems Problem Noted Date Diagnosed Date Benign prostatic hyperplasia 09/21/2023 Benign prostatic hyperplasia with urinary freque ncy 09/08/2023 Urinary frequency 09/08/2023 Benign prostatic hyperplasia with lower urinary tract symptoms 09/08/2023 Incomplete bladder emptying 09/08/2023 OAG (open angle glaucoma) suspect, low risk, koby ateral 07/19/2023 Assessment & Plan (01/17/2024 1:44 PM CDT): Based on large CDR OU, (-)FHx IOP consistently mid teens with slightly thicker CCT RNFL (12/2023): OS thinner 6:00 but prev 2022 scan stable to 2018, OD stable GCC (06/2023): OU full, baseline HVF (12/2023): OU full today Given stable IOPs and overall testing, will follow up in 1 year with dilated exam and RNFL/GCC Assessment & Plan (07/19/2023 2:27 PM ENERGY ECONOMIST): Based on large CDR OU, (-)FHx IOP consistently mid teens with slightly thicker CCT RNFL (06/2023): OD full and stable, OS poor scan but 04/2022 scan stable to GCC (06/2023): OU full, baseline HVF (10/2022): OU no repeatable defects Follow up in 6 months with HVF 24-2 and repeat RNFL OS only Hyperhidrosis 06/06/2022 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 10/05/2021 Clinical diagnosis of COVID-19 05/03/2021 Left inguinal hernia 02/12/2021 Overview (02/12/2021): Added automatically from request for surgery [id number] Retinal round hole without detachment, right 09/2020 Assessment & Plan (01/17/2024 1:04 PM CDT): S/p laser retinopexy 09/2020 Retina attached today with no new breaks Reviewed symptoms of retinal detachment, RTC stat if noted Assessment & Plan (07/19/2023 2:22 PM ENERGY ECONOMIST): S/p laser retinopexy 09/2020 Reviewed symptoms of retinal detachment, RTC stat if noted Due for dilation at next visit Assessment & Plan (09/29/2020 10:56 AM ENERGY ECONOMIST): Flat with operculum without subretinal fluid superonasally. Vitreous clump vs operculum superotemporal without overt retinal break but pigmentary changes. Attached 360 . Discussed R/B/A of laser retinopexy today and patient wishes to proceed. ?? Laser retinopexy today ?? Warning Sx RT/RD discussed Screening for malignant neoplasm of colon 2019 Overview (05/11/2020): Added automatically from request for surgery [id number] Idiopathic peripheral neuropathy 04/01/2020 Chronic pain of left lower extremity 08/23/2019 Chronic left hip pain 08/23/2019 Other chronic pain 08/23/2019 Neuralgia 08/23/2019 Muscle spasm 08/23/2019 Pes anserinus tendonitis 08/23/2019 Sensorineural hearing loss, asymmetrical 019 Lateral epicondylitis of right elbow 10/23/2017 Elbow pain 10/20/2017 Arthralgia of hip 07/13/2017 Cervical pain (neck) 02/09/2017 Obsessional thoughts 07/31/2015 Surgical follow-up care 07/20/2015 Motor tic disorder 10/22/2014 Assessment & Plan (11/01/2023 6:27 PM ENERGY ECONOMIST): Chronic tic disorder: He has simple motor tics that exclusively affect the right side (Face, neck, shoulder, buttock) since childhood. These are mostly motor tics and with a prominent painful sensory tic around the right eye with predominant premonitory sensations/urges. Since he hasn't had phonic tics, so he does not meet Tourette syndrome diagnosis. Admittedly, this is a rather unusual situation for a chronic motor tic problem. Superficially, the face could just be lifelong hemifacial spasm but he has much more than that -- and the sensory, painful tic would not fit. Thus his tics are mostly sensory and exclusively on the right side makes his syndrome atypical in general and more consistent with a tic disorder. 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 Since he ran out of carbamazepine for two weeks with no change in symptoms, it is likely that it was not helping, and it is reasonable to continue off this. His depression is in remission. He has some subjective cognitive complaints that may be related to his medications (clonazepam, gabapentin, oxybutynin, hydrocodone, duloxetine). These are not affecting his functioning and only restricted to occasional word finding difficulty and forgetting names. This also could be normal for age. We will monitor for now, but he will likely need a neuropsychological evaluation in the future, and if develops more difficulty or symptoms, will consider further testing and cognitive behavioral therapy. Recommendations: - Continue clonazepam as is - No need to resume carbamazepine at this time; may consider in the future if symptoms get worse - Monitor cognitive symptoms; may consider testing and cognitive behavioral therapy in the future Visit started at 4:45 and ended at 6 PM Berto Woods MD Movement Neurology Fellow [facility] in [place] Assessment & Plan (03/09/2023 2:36 PM CDT): He has simple motor tics that exclusively affect the right side, primarily the right face. He also has fluctuating right periorbital aching pain that we believe to be a sensory tic. Closing the right eye relieves the pain, which may represent a sensory trick and suggests a dystonic-tic etiology. He has never had an vocal tics, and thus does not meet criteria for Tourette syndrome. Clonazepam provides partial relief, but the tics and especially the pain are still bothersome. Prior trials of baclofen, tetrabenazine, tizanidine, botulinum toxin injections, and a weighted contact were ineffective. We recently prescribed carbamazepine and he has found that, along with clonazepam, to be helpful for pain. He has some occasional blurred vision but he thinks that is more since starting low dose duloxetine for neuropathy. We will cautiously increase the carbamazepine but if side effects worsen,may need to cut back down. We will keep his clonazepam the same. pOverall, we are reluctant to increase clonazepam further as his balance is already mildly impaired (though this is partially attributable to neuropathy), but cautiously increasing it can be considered in the future if needed. We will refer him to PT for his neuropathy-caused imbalance. Mood and spirits and anxiety are good with bupropion and his Neuropathy specialist mentioned he may be able to cut back or stop this now that he is on duloxetine. However, he is on 300 mg of bupropion and only 20 mg of duloxetine, which is a tiny dose. Unless he were on a far bigger dose of duloxetine, I would not stop the bupropion. Recommendations: -continue clonazepam at current dose. -increase carbamazepine as directed, watching for side effects/benefit. -we will refer to PT for imbalance related to neuropathy. -defer any additional botulinum toxin injections until we see if these changes help. Assessment & Plan (10/19/2022 4:40 PM ENERGY ECONOMIST): He has simple motor tics that exclusively affect the right side, primarily the right face. He also has fluctuating right periorbital aching pain that we believe to be a sensory tic. Closing the right eye relieves the pain, which may represent a sensory trick and suggests a dystonic-tic etiology. He has never had an vocal tics, and thus does not meet criteria for Tourette syndrome. Clonazepam provides partial relief, but the tics and especially the pain are still bothersome. Prior trials of baclofen, tetrabenazine, tizanidine, botulinum toxin injections, and a weighted contact were ineffective. We recently prescribed carbamazepine at his last botulinum appointment, but he has not yet started it. Instead, we recommended moving the nighttime dose of clonazepam to earlier in the evening (from 10pm to 4pm). This change is driven by his clear history that the painful tics occur after 5-6 pm, perhaps when the benefit from the 8 a.m. clonazepam diminishes. Also since he has no complaints in the night, he could move the 10:30pm dose earlier in the day to provide benefit when he needs it. This may make more sense than starting carbamazepine, at least to first try this change. Note, this does not increase the dose of clonazpema. If this does not help after 2 weeks, he can then start carbamazepine or possibly slightly increase clonazepam. Overall, we are reluctant to increase clonazepam further as his balance is already mildly impaired (though this is partially attributable to neuropathy), but cautiously increasing it can be considered in the future if needed. Recommendations: -continue clonazepam at current dose, but move nighttime dose to 4pm -if pain is still bothersome after 2 weeks, then start carbamazepine as previously planned or consider a slight increase in late afternoon dose of clonazepam. Note, that he does not drink alcohol so those interactions are not an issue--but were discussed. -defer any additional botulinum toxin injections until we see if these changes help Assessment & Plan (08/09/2022 4:40 PM ENERGY ECONOMIST): He has simple motor (and likely sensory) tics that exclusively affect the right side, primarily the right face. He has associated right periorbital aching pain, which may represent concurrent sensory tics although there does seem to be a dystonic component in my mind. He has a sensory trick that suppresses both the movements and pain (applying pressure to the right eye), which suggests a dystonic-tic etiology, he also uses a patch at times. He has never had an vocal tics. Clonazepam provides partial relief, but the tics and pain are still bothersome to him on his current dose. We are reluctant to increase clonazepam any further as his balance is already mildly impaired (he has peripheral neuropathy, controlled with gabapentin). Prior trials of baclofen, tetrabenazine, and a weighted contact were ineffective. Tizanidine may have provided some mild benefit and we will increase the dose. Though he does have some daytime grogginess, he combats this successfully with daily caffeine pill. He also previously had Btx injections that were ineffective. He recently tried this again and thought it improved pain for 2 days but then no improvement since. He will continue to f/u with Dr. Palomino on this. 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 Recommendations: - Continue clonazepam at current dose - Increase tizanidine to 4 mg bid (max dose 6 mg bid). - Continue caffeine pill. - Continue bupropion. - Repeat trial of possibly bigger dose of Btx, targeting the medial superior and inferior orbicularis oculi Assessment & Plan (03/10/2022 1:48 PM CDT): He has simple motor (and likely sensory) tics that exclusively affect the right side, primarily the right face. He has associated right periorbital aching pain, which may represent concurrent sensory tics although there does seem to be a dystonic component in my mind. He has a sensory trick that suppresses both the movements and pain (applying pressure to the right eye), which suggests a dystonic-tic etiology. He has never had an vocal tics. Clonazepam provides partial relief, but the tics and pain are still bothersome to him on his current dose. We are reluctant to increase clonazepam any further as his balance is already mildly impaired (he has peripheral neuropathy, controlled with gabapentin). Prior trials of baclofen, tetrabenazine, and a weighted contact were ineffective. Tizanidine may have provided some mild benefit and we will increase the dose. Though he does have some daytime grogginess,he combats this successfully with daily caffeine pill. He also previously had Btx injections that were ineffective. However, based on the specific location where he described the pain today, we would like to try repeating injections more medially in the upper lid which we did not target in the past two injection sessions. 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 Recommendations: - Continue clonazepam at current dose - Increase tizanidine to 6 mg every day. - Continue caffeine pill. - Continue bupropion. - Repeat trial of Btx, targeting the medial superior and inferior orbicularis oculi Assessment & Plan (01/12/2022 4:50 PM CDT): He has simple motor (and likely sensory) tics that exclusively affect the right side, primarily the right face. He has associated right periorbital aching pain, which may represent concurrent sensory tics. He has a sensory trick that suppresses both the movements and pain (applying pressure to the right eye), which suggests a dystonic-tic etiology. He has never had an vocal tics. Clonazepam provides partial relief, but the tics and pain are still bothersome to him on his current dose. We are reluctant to increase clonazepam any further as his balance is already mildly impaired. Prior trials of baclofen, tetrabenazine, and a weighted contact were ineffective. We will start a low-dose of tizanidine which has not been tried previously. He also previously had Btx injections that were ineffective. However, based on the specific location where he described the pain today we would like to try repeating injections more medially in the upper lid which we did not target in the past two injection sessions. Recommendations: -continue clonazepam at current dose -start tizanidine 2mg daily. Strategy and side- -repeat trial of Btx, targeting the medial superior and inferior orbicularis oculi Assessment & Plan (10/05/2021 3:56 PM ENERGY ECONOMIST): He has chronic motor tics with prominent facial tics, worse with the right eye associated with aurora-orbital eye pain and improved when eye is closed. Etiology is likely dystonic tics as it is sustained and associated with increased muscle activity and pain. Sensory trick (pressure on the eye) and an eye patch seems to help the pain. There is a chance this could also be dystonia but he had no response to botulinin in the past and is already on large doses of clonazepam and baclofen. He can volitionally suppress his tics as well as has a premonition urge but tics have never changed over time, have never waxed and waned and he has never had any vocalizations. He is most bothered by the chronic pain and ache associated with the tic around the right eye. This is likely due to increased aurora-orbital muscle activity. He has tried btx injections in the past, but it did not help. He also failed guanfacine and low dose risperidone in the past. He currently takes relatively large doses of clonazepam and baclofen and does have some relief, but does not resolve the pain. He notices clonazepam inhibits his sexual function and takes lessor none during days he has sex. A recent increase in baclofen wasn't all that helpful. We will attempt to add TBZ though I warned him that this may or many not help dystonic tics and to watch for parkinsonism or worsened depression. TBZ has shown to be helpful in some patients with tics but like all medicine for tics, this is unpredictable. Mood is good and well controlled with buproprion. He does not have substantial obsessive or compulsive tendencies. He does not have ADHD. He follows with Dr. John for his neuropathy and paresthesias, and is well controlled with gabapentin. Recommendation: - Same baclofen. - Can take clonazepam and vary timing of the dose depending on when he is planning to have sex and may change timing to see if this better helps pain but do not recommend stopping cold turkey for days at a time. - He may reconsider risperidone but I am not sure how helpful it would be for dystonic tics. We will instead start TBZ today to see if this provides any improvement and if so, we will cut back his large dose of clonazepam. Assessment & Plan (04/08/2021 3:33 PM CDT): He has chronic motor tics with prominent facial tics, worse with the right eye associated with aurora-orbital eye pain. Etiology is likely dystonic tics as it is sustained and associated with increased muscle activity and pain. Sensory trick (pressure on the eye) and an eye patch seems to help the pain. There is a chance this could also be dystonia but he had no response to botulinin in the past and is already on large doses of clonazepam and baclofen. He can volitionally suppress his tics as well as has a premonition urge but tics have never changed over time, have never waxed and waned and he has never had any vocalizations. He is most bothered by the chronic pain and ache associated with the tic around the right eye. This is likely due to increased aurora-orbital muscle activity. He has tried btx injections in the past, but it did not help. He also failed guanfacine. He currently takes clonazepam and baclofen and does have some relief, but does not resolve the pain. He notices clonazepam inhibits his sexual function and takes less during days he has sex. A recent increase in baclofen wasn't all that helpful. We will try changing the dosing time for his clonazepam a bit and see if that is helpful. Mood is good and well controlled with buproprion. He does not have substantial obsessive or compulsive tendencies. He does not have ADHD. He follows with Dr. John for his neuropathy and paresthesias, and is well controlled with gabapentin. He tried low dose risperidone and stopped it due to fear of TD. He may be willing to retry risperidone. Recommendation: - Same baclofen. - Can take clonazepam and vary timing of the dose depending on when he is planning to have sex and may change timing to see if this better helps pain. - He may reconsider risperidone but I am not sure how helpful it would be for dystonic tics. Assessment & Plan (10/14/2020 5:14 PM ENERGY ECONOMIST): He has chronic motor tics with prominent facial tics, worse with the right eye associated with aurora-orbital eye pain. Etiology is likely dystonic tics as it is sustained and associated with increased muscle activity and pain. Sensory trick (pressure on the eye) and an eye patch seems to help the pain. He can volitionally suppress his tics as well as has a premonition urge. Further this eye pain is relieved by exercises, including sex. He is most bothered by the chronic pain and ache associated with the tic around the right eye. This is likely due to increased aurora-orbital muscle activity. He has tried btx injections in the past, but it did not help. He currently takes clonazepam and baclofen and does have some relief, but does not resolve the pain. He notices clonazepam inhibits his sexual function and has tapered himself to 2 tablets/day, but pain and tics were worse. We discussed that he could take 2 tablets (4mg) on days that he was not having sex, and can take the third tablet after sex. He wants to try to have more benefit from the aching pain. He also could increase baclofen to 50mg BID but should watch for daytime somlence, especially since he is also taking clonazepam. Strategies and side effects discussed. Mood is good and well controlled with buproprion. He does not have substantial obsessive or compulsive tendencies. He does not have ADHD. He follows with Dr. John for his neuropathy and paresthesias, and is well controlled with gabapentin. Recommendation: - Increase baclofen to 50mg BID. Watch for daytime somnolence. - Can take clonazepam and vary timing of the dose depending on when he is planning to have sex - Follow up in 6 months with Alicia, [address] Palomino Assessment & Plan (04/03/2020 1:45 PM CDT): He has chronic motor tics with facial tic prominence, worse with the right eye with a feeling of pain and some increased blinking/twitching of the eye. We had initially thought that the intermittent but now more clearly hours long right eye pain may be a sensory type tic related to the simple motor tics -- but this no longer seems to be the case as it lasts all day long during waking hours and is only relieved by either patching the eye or laying down and keeping the eye closed and he did not respond to btx injections. He saw both opthalm and neuro-opthalm and his eyes were deemed essentially normal. He had a corneal patch in the right eye to see if this would hep but it caused blurred vision and did not help. He is on clonazepam and baclofen moderate to high dosing and finds some relief with those. He additionally has noted some cramping in his thighs that responded to PT and a need to squeeze his right buttock when on the exercise bike. Guanfacine (now at 1 tab bid) has not been helpful and he believes it has contributed to ED and caused some bothersome lightheadedness. We will taper and stop this. He also failed risperidone (though at low dose) and botulinin. We will increase his clonazepam a bit and change the timing of his second dose. We may also change the timing of his second dose of baclofen down the road. Mood and spirits are controlled well with current bupropion. OCD tendencies continue but do not cause any substantial problems. He has no AD(H)D. His paresthesia is well controlled with gabapentin and he will continue to see Dr. John for this. Recs: 1. Same baclofen. 2. Taper and stop guanfacine. 3. Increase morning clonazepam to 2 tablets. Change timing of second dose of clonazepam to midday. 4. Consider changing second dose of baclofen to midday in a few weeks. Assessment & Plan (09/30/2019 3:39 PM ENERGY ECONOMIST): He has chronic motor tics with facial tic prominence, worse with the right ey with a feeling of pain and some increased blinking/twitching of the eye. We had initially thought that the intermittent but now more clearly hours long right eye pain may be a sensory type tic related to the simple motor tics -- but this no longer seems to be the case and he did not respond to btx injections. He saw both opthalm and neuro-opthalm and his eyes were deemed essentially normal. He had a corneal patch in the right eye to see if this would hep but it caused blurred vision and did not help. He is on clonazepam and baclofen and finds some relief with those. He additionally has noted some cramping in his thighs that responded to PT and a need to squeeze his right buttock when on the exercise bike. Risperidone, he felt, was not at all helpful (but low dose) but guanfacine has been somewhat helpful. We will first stop risperidone and if the sensory feeling is no worse in 7 to 10 days, we will increase guanfacine. His paresthesia is well controlled with gabapentin and he will continue to see Dr. John for this. Recs: 1. Same baclofen, same clonazepam. 2. Stop risperidone. 3. If tics no worse in 7 to 10 days, will start to increase guanfacine, watching for side effects. Acquired trigger finger 09/11/2014 Nocturnal enuresis 04/11/2014 Skin sensation disturbance 04/01/2014 Overview (12/01/2016): Skin sensation disturbance Osteoarthritis of knee 2011 Resolved Problems Problem Noted Date Diagnosed Date Resolved Date Chronic motor or vocal tic disorder 03/07/2018 09/30/2019 Assessment & Plan (09/30/2019 2:40 PM ENERGY ECONOMIST): He has chronic motor tics with facial tic prominence, worse with the right ey with a feeling of pain and some increased blinking/twitching of the eye. We had initially thought that the intermittent but now more clearly hours long right eye pain may be a sensory type tic related to the simple motor tics -- but this no longer seems to be the case and he did not respond to btx injections. He saw both opthalm and neuro-opthalm and his eyes were deemed essentially normal. He had a corneal patch in the right eye to see if this would hep but it caused blurred vision and did not help. At this point, he is happy with the benefit from baclofen and clonazepam and we will continue those doses. He has had relief with risperidol from Dr Linares (who has retired) in the past. Recs: 1. Stop risperidone. 2. Then if no worse, we will increase guanfacine slowly. 3. Same baclofen, same clonazepam. Assessment & Plan (09/24/2018 5:11 PM ENERGY ECONOMIST): He has chronic motor tics with facial tic prominence, worse with the right ey with a feeling of pain and some increased blinking/twitching of the eye. We had initially thought that the intermittent but now more clearly hours long right eye pain may be a sensory type tic related to the simple motor tics -- but this no longer seems to be the case and he did not respond to btx injections. He saw both opthalm and neuro-opthalm and his eyes were deemed essentially normal. He had a corneal patch in the right eye to see if this would hep but it caused blurred vision and did not help. At this point, he is happy with the benefit from baclofen and clonazepam and we will continue those doses. He has had relief with risperidol from Dr Linares (who has retired) in the past. Recs: 1. Same baclofen, same clonazepam. Peripheral nerve disease 09/22/2014 Immunizations Name Administration Dates Next Due Influenza, Quadrivalent, Rec ombinant, Egg Free, Preservative Free, Intramuscular 05/14/2020,06/21/2019 Pfizer SARS-CoV-2 Monovalent Vaccination (12+ Yrs) PURPLE 11/13/2020,11/13/2020,10/22/2020,10/22 Pneumococcal Conjugate PCV 13 02/03/2021, 019 ZOSTER LIVE 04/10/2017 ZOSTER Recombinant 09/13/2019,06/29/2019 Social History Tobacco Use Types Packs/Day Years Used Date Smoking Tobacco: Never Smokeless Tobacco: Never Tobacco Cessation:Counseling Given: Not Answered Alcohol Use Standard Drinks/Week Comments Never 0 (1 standard drink = 0.6 oz pur e alcohol) AUDIT-C Answer Date Recorded Q1: How often do you have a drink containing alcohol? Never 12/05/2023 Q2: How many drinks containi ng alcohol do you have on a typical day when you are drinking? Patient does not drink Q3: How often do you have si x or more drinks on one occasion? Never 12/05/2023 Personal Safety Answer Date Recorded Have you ever been in or are you currently in a harmful physical or emotional relationship or is someone making you feel afraid or unsafe? Denies 2024 Sex and Gender Information Value Date Recorded Sex Assigned at Male 11/27/2018 11:24 AM CDT Legal Sex Male 2:36 AM ENERGY ECONOMIST Gender Identity Not on file Sexual Orientation Straight 11/27/2018 11 :24 AM CDT Last Filed Vital Signs Vital Sign Reading Time Taken Comments Blood Pressure 119/82 2024 2:05 PM ENERGY ECONOMIST Pulse 56 2024 2:05 PM ENERGY ECONOMIST Temperature 36.5 ??C (97.7 ??F) 2024 2:05 PM CS T Respiratory Rate 16 2024 2:05 PM ENERGY ECONOMIST Oxygen Saturation 95% 2024 2:05 PM ENERGY ECONOMIST Inhaled Oxygen Concentration - - Weight 86.2 kg (190 lb) 2024 2:08 PM ENERGY ECONOMIST Height 180.3 cm (5' 11 ) 07/19/2024 2:43 PM ENERGY ECONOMIST Body Mass Index 26.5 07/19/2024 2:43 PM ENERGY ECONOMIST Plan of Treatment Not on file Medical Devices Implanted Type Area Engine Builder Device Identifier Shelf Expiration Date Model / Serial / Lot Rt Total Knee Arthroplasty Right: Knee Bilateral Total Hip Arthroplasty Bilateral: Hip [employer] [id number] Progrip 15x9cm Self Money Counter Rectangle Mesh Surgical Polyester Hernia - [id number] Implanted:Qty: 1 on 02/25/2021 by Manny Bhatti MD at [facility] Left: Inguinal [employer] 10/25/2025 [id number] / / [id number] [employer] Prosthesis Uro Prostate Urethra Cartridge Urolift 2 Ul2-C - [id number] Implanted:Qty: 1 on 12/05/2023 at [facility] N/A: Prostate [employer] 02/28/2025 UL2-C / / [id number] [employer] Prosthesis Uro Prostate Urethra Cartridge Urolift 2 Ul2-C - [id number] Implanted:Qty: 1 on 12/05/2023 at [facility] N/A: Prostate [employer] 02/22/2025 UL2-C / / [id number] [employer] Prosthesis Uro Prostate Urethra Cartridge Urolift 2 Ul2-C - [id number] Implanted:Qty: 1 on 12/05/2023 at [facility] N/A: Prostate [employer] 02/28/2025 UL2-C / / [id number] [employer] Prosthesis Uro Prostate Urethra Cartridge Urolift 2 Ul2-C - [id number] Implanted:Qty: 1 on 12/05/2023 at [facility] N/A: Prostate [employer] 02/22/2025 UL2-C / / [id number] [employer] Prosthesis Uro Prostate Urethra Cartridge Urolift 2 Ul2-C - [id number] Implanted:Qty: 1 on 12/05/2023 at [facility] N/A: Prostate [employer] 02/28/2025 UL2-C / / [id number] Procedures Procedure Name Priority Date/Time Associated Diagnosis Comments XR ANKLE LEFT 3 OR MORE VIEWS Schedule Routine, Read Routine (OP Routine) 07/19/2024 2:50 PM ENERGY ECONOMIST Left ankle pain, unspecified chronicity XR FOOT LEFT 3 OR MORE VIEWS Schedule Routine, Read Routine (OP Routine) 07/19/2024 2:50 PM ENERGY ECONOMIST Left foot pain COLONOSCOPY 07/30/2020 10:34 AM ENERGY ECONOMIST from Last 3 Months or Most Recently Relevant to Health Maintenance Results * XR Foot Left 3+ View (07/19/2024 2:50 PM ENERGY ECONOMIST) Anatomical Region Laterality Modality Lower Extremities, Foot Left Computed Radiography 07/19/2024 3:07 PM ENERGY ECONOMIST Impressions 07/19/2024 3:07 PM ENERGY ECONOMIST 1. ??Unchanged left pes cavovarus with mild hallux valgus and bunion deformity. 2. ??Unchanged mild left ankle and left great toe metatarsophalangeal joint osteoarthritis. 3. ??Unchanged left distal Achilles tendinopathy. Electronically signed by: Nic Díaz M.D. Narrative 07/19/2024 3:07 PM ENERGY ECONOMIST EXAMINATION: XR FOOT LEFT 3 OR MORE VIEWS, XR ANKLE LEFT 3 OR MORE VIEWS HISTORY: Left foot and ankle pain FINDINGS: 3 view examination of the weightbearing left ankle and left foot is read with comparison to left ankle radiographs 10/11/2023 and left foot radiographs 10/14/2022. ??Unchanged mild pes cavovarus with mild hallux valgus, metatarsus primus varus, bunion deformity. ??Unchanged mild 1st metatarsophalangeal joint osteoarthritis. ??Unchanged mild tibiotalar and subtalar joint osteoarthritis. ??The Achilles tendon remains mildly thickened with mild distal foci of intrasubstance calcifications. ??Small plantar heel spur with calcifications of the proximal plantar fascia. ??No fracture or dislocation. Procedure Note Jassi Díaz, Nic Carson MD - 07/19/2024 EXAMINATION: XR FOOT LEFT 3 OR MORE VIEWS, XR ANKLE LEFT 3 OR MORE VIEWS HISTORY: Left foot and ankle pain FINDINGS: 3 view examination of the weightbearing left ankle and left foot is read with comparison to left ankle radiographs 10/11/2023 and left foot radiographs 10/14/2022. Unchanged mild pes cavovarus with mild hallux valgus, metatarsus primus varus, bunion deformity. Unchanged mild 1st metatarsophalangeal joint osteoarthritis. Unchanged mild tibiotalar and subtalar joint osteoarthritis. The Achilles tendon remains mildly thickened with mild distal foci of intrasubstance calcifications. Small plantar heel spur with calcifications of the proximal plantar fascia. No fracture or dislocation. IMPRESSION: 1. Unchanged left pes cavovarus with mild hallux valgus and bunion deformity. 2. Unchanged mild left ankle and left great toe metatarsophalangeal joint osteoarthritis. 3. Unchanged left distal Achilles tendinopathy. Electronically signed by: Nic Díaz M.D. Bianca Street NP IMG XR PROCEDURES Final Result * XR Ankle Left 3+ View (07/19/2024 2:50 PM ENERGY ECONOMIST) Anatomical Region Laterality Modality Lower Extremities, Ankle Left Compute d Radiography 07/19/2024 3:07 PM ENERGY ECONOMIST Impressions 07/19/2024 3:07 PM ENERGY ECONOMIST 1. ??Unchanged left pes cavovarus with mild hallux valgus and bunion deformity. 2. ??Unchanged mild left ankle and left great toe metatarsophalangeal joint osteoarthritis. 3. ??Unchanged left distal Achilles tendinopathy. Electronically signed by: Nic Díaz M.D. Narrative 07/19/2024 3:07 PM ENERGY ECONOMIST EXAMINATION: XR FOOT LEFT 3 OR MORE VIEWS, XR ANKLE LEFT 3 OR MORE VIEWS HISTORY: Left foot and ankle pain FINDINGS: 3 view examination of the weightbearing left ankle and left foot is read with comparison to left ankle radiographs 10/11/2023 and left foot radiographs 10/14/2022. ??Unchanged mild pes cavovarus with mild hallux valgus, metatarsus primus varus, bunion deformity. ??Unchanged mild 1st metatarsophalangeal joint osteoarthritis. ??Unchanged mild tibiotalar and subtalar joint osteoarthritis. ??The Achilles tendon remains mildly thickened with mild distal foci of intrasubstance calcifications. ??Small plantar heel spur with calcifications of the proximal plantar fascia. ??No fracture or dislocation. Procedure Note Nic Niño MD - 07/19/2024 EXAMINATION: XR FOOT LEFT 3 OR MORE VIEWS, XR ANKLE LEFT 3 OR MORE VIEWS HISTORY: Left foot and ankle pain FINDINGS: 3 view examination of the weightbearing left ankle and left foot is read with comparison to left ankle radiographs 10/11/2023 and left foot radiographs 10/14/2022. Unchanged mild pes cavovarus with mild hallux valgus, metatarsus primus varus, bunion deformity. Unchanged mild 1st metatarsophalangeal joint osteoarthritis. Unchanged mild tibiotalar and subtalar joint osteoarthritis. The Achilles tendon remains mildly thickened with mild distal foci of intrasubstance calcifications. Small plantar heel spur with calcifications of the proximal plantar fascia. No fracture or dislocation. IMPRESSION: 1. Unchanged left pes cavovarus with mild hallux valgus and bunion deformity. 2. Unchanged mild left ankle and left great toe metatarsophalangeal joint osteoarthritis. 3. Unchanged left distal Achilles tendinopathy. Electronically signed by: Nic Díaz M.D. Bianca Street NP IMG XR PROCEDURES Final Result * COLONOSCOPY (07/30/2020 10:34 AM ENERGY ECONOMIST) Anatomical Region Laterality Modality Other Narrative Procedure Note Jacek Mahmood MD - 07/30/2020 10:34 AM CST [facility] Patient Name: Shaggy Allison Procedure Date: 07/30/2020 10:34 AM Date of : 1955 Admit Type: Outpatient Age: 64 Gender: Male Attending MD: Jacek Mahmood M.D. Room: [facility] ENDOSCOPY ROOM 02 Note Status: Finalized Procedure: Colonoscopy Indications: Screening for colorectal malignant neoplasm, Last colonoscopy: 2012 Referring MD: Musa Cancino MD Providers: Jacek Mahmood M.D. Medicines: Propofol per Anesthesia Complications: No immediate complications. Estimated blood loss:None. Estimated Blood Loss: Estimated blood loss: none. Procedure: Pre-Anesthesia Assessment: - Immediately prior to administration ofmedications, the patient was re-assessed for adequacy to receive sedatives. - Sedation was administered by an anesthesia professional. General anesthesia was attained. - The heart rate, respiratory rate, oxygensaturations, blood pressure, adequacy of pulmonary ventilation,and response to care were monitored throughout the procedure. - The physical status of the patient was re-assessed after the procedure. The benefits, risks and alternatives of theprocedure and sedation were discussed and informed consent was obtained. All questions were answered. Please referto the signed informed consent document in the medical record. The scope was passed under direct vision.The [id number] Colonoscope was introduced through the anus and advanced to the the cecum, identifiedby appendiceal orifice and ileocecal valve. The colonoscopy was performed with ease. The patient tolerated the procedure well. The quality of thebowel preparation was good. The quality of the bowel preparation was evaluated using the BBPS (BostonBowel Preparation Scale) with scores of: Right Colon = 2, Transverse Colon = 2 and Left Colon = 2. The totalBBPS score equals 6. The bowel preparation used wasSUPREP. Bowel prep was administered using a split dose. Findings: The entire examined colon appeared normal. Impression: - The entire examined colon is normal. - No specimens collected. Recommendation: - Repeat colonoscopy in 5 years for screeningpurposes. - Repeat colonoscopy in 5 years because the bowel preparation was suboptimal. Electronically signed by Dr.Matthew Timoteo M.D. Jacek Mahmood M.D. 07/30/2020 11:23:41 AM . Number of Addenda: 0 Note Initiated On: 07/30/2020 10:34 AM Recognized by the [place] [employer] for promoting quality in endoscopy Jacek Mahmood MD ENDOSCOPY PROCEDURES Final R esult from Last 3 Months or Most Recently Relevant to Health Maintenance Insurance [employer] MEDICARE GOLD [employer] CHOICE MEDICARE PPO [employer] MEDICARE GOLD Advance Directives For more information, please contact: [phone] * Full Code (Latest Code Status on File) Date Activated Date Inactivated Comments 07/30/2020 9:52 AM 07/30/2020 4:22 PM Care Teams Junior Web Developer Relationship Specialty Start Date End Date Andres Parker MD PCP - General Family Medicine 04/05/22
--- OUTSIDE RECORDS SUMMARY | 2024-09-20 15:05 | XMS_ITS | Encounter Summary ---
Author Organization [facility] Address [address] [place] [address] Phone Care Team Providers Care Wind Turbine Engineer Name Role Phone Musa Cancino MD Primary Care Provider [phone] Andres Parker MD Primary Care Provider [phone] Encounter Details Date Type Department Care Team (Late st Contact Info) Description 09/23/2014 Orders Only [facility] [address] [place] [address] Scanning, Provider Social History Tobacco Use Types Packs/Day Years Used Date Smoking Tobacco: Never Alcohol Use Standard Drinks/Week Comments No 0 (1 standard drink = 0.6 oz pur e alcohol) Sex and Gender Information Value Date Recorded Sex Assigned at Male 11/27/2018 11:24 AM CDT Legal 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 Gender Identity Not on file Sexual Orientation Straight 11/27/2018 11 :24 AM CDT documented as of this encounter Plan of Treatment Not on file documented as of this encounter Procedures Procedure Name Priority Date/Time Associated Diagnosis Comments SCAN - OTHER ORDERS 09/23/2014 documented in this encounter Results * SCAN - OTHER ORDERS (09/23/2014) us Provider Scanning Final Result documented in this encounter Visit Diagnoses Not on filedocumented in this encounter Care Teams Wind Turbine Engineer Relationship Specialty Start Date End Date uMsa Cancino MD [address] [place] [place] [address] PCP - General 06/01/12 04/04/22 Andres Parker MD [address] [place] [address] PCP - General Family Medicine 04/05/22 documented as of this encounter
--- OUTSIDE RECORDS SUMMARY | 2024-09-20 15:05 | XMS_ITS | Clinical Summary ---
Author Organization [facility] Address [address] [place] [address] Care Team Providers Care Field Installer Name Role Phone Andres Parker MD Primary Care Provider [phone] [phone] Allergies Active Allergy Reactions Criticality Noted Date Comments Tetracycline Unknown,Rash High 10/22/2014 Pancreatitis Medications allopurinol (ZYLOPRIM) 300 mg tabletIndications :prevention of acute gout attack Take 0.5 tablets (150 mg total) by mouth every morning 8 Active clindamycin (CLEOCIN) 150 mg capsule Takes before dental appts 1 Active levothyroxine (SYNTHROID) 125 mcg tabletIndications :hypothyroidism Take 1 tablet (125 mcg total) by mouth english and reading instructor before breakfast 1 Active tadalafiL (CIALIS) 5 [...] RNFL/GCC Assessment & Plan (07/19/2023 2:27 PM CHECKER): Based on large CDR OU, (-)FHx IOP [...] (02/12/2021): Added automatically from request for surgery [id number] Retinal round hole without detachment, right 09/2020 Assessment & Plan (01/17/2024 1:04 PM CDT): S/p laser retinopexy 09/2020 Retina attached today with no new breaks Reviewed symptoms of retinal detachment, RTC stat if noted Assessment & Plan (07/19/2023 2:22 PM CHECKER): S/p laser retinopexy 09/2020 Reviewed symptoms of retinal detachment, RTC stat if noted Due for dilation at next visit Assessment & Plan (09/29/2020 10:56 AM CHECKER): Flat with operculum without subretinal fluid superonasally. Vitreous clump vs operculum superotemporal without overt retinal break but pigmentary changes. Attached 360 . Discussed R/B/A of laser retinopexy today and patient wishes to proceed. ?? Laser retinopexy today ?? Warning Sx RT/RD discussed Screening for malignant neoplasm of colon 2019 Overview (05/11/2020): Added automatically from request for surgery [id number] Idiopathic peripheral neuropathy 04/01/2020 Chronic pain of [...] 10/22/2014 Assessment & Plan (11/01/2023 6:27 PM CHECKER): Chronic tic disorder: He has simple motor [...] minimal/mild functional disability, so no need to exchange engineer at this time. Since he ran out [...] PM Berto Woods MD Movement Neurology Fellow [facility] in [place] Assessment & Plan (03/09/2023 2:36 PM CDT): [...] help. Assessment & Plan (10/19/2022 4:40 PM CHECKER): He has simple motor tics that exclusively [...] help Assessment & Plan (08/09/2022 4:40 PM CHECKER): He has simple motor (and likely sensory) [...] oculi Assessment & Plan (10/05/2021 3:56 PM CHECKER): He has chronic motor tics with prominent [...] tics. Assessment & Plan (10/14/2020 5:14 PM CHECKER): He has chronic motor tics with prominent [...] weeks. Assessment & Plan (09/30/2019 3:39 PM CHECKER): He has chronic motor tics with facial [...] 09/30/2019 Assessment & Plan (09/30/2019 2:40 PM CHECKER): He has chronic motor tics with facial [...] clonazepam. Assessment & Plan (09/24/2018 5:11 PM CHECKER): He has chronic motor tics with facial [...] baclofen, same clonazepam. Peripheral nerve disease 09/22/2014 Encounters Date Type Department Care Team Description 09/12/[address] [facility] Scheduling [address] [place] [address] Leodan Mayers MD PhD Scheduling Appointments 07/31/[address] [facility] Urology [address] [facility] [address] [place] [address] Manny Last MD 07/22/[address] [facility] Orthopaedic Surgery [address] [facility] 2nd Floor [address] [place] [address] Lilliam Manrique, [facility] 07/22/[address] [facility] Urology [address] [facility] [address] [place] [address] Yakelin Bond, [facility] 07/19/2024 3:15 PM CHECKER Office Visit [facility] Orthopaedic Surgery [address] [facility] 1st Floor [address] [place] [address] NP Primary osteoarthritis of left ankle (Primary Dx); Left ankle pain, unspecified chronicity; Left foot pain 07/19/2024 2:45 PM CHECKER - 07/19/2024 11:59 PM CHECKER Hospital Encounter [facility] Radiology at [facility] [address] [place] [address] Left foot pain; Left ankle pain, unspecified chronicity Discharge Disposition: Discharge to home or self care 07/10/2024 3:20 PM CHECKER Office Visit [facility] Orthopaedic Surgery [address] [facility] [address] [place] [address] Jamaal Carney MD Aftercare following right knee joint replacement surgery (Primary Dx); Primary osteoarthritis of left knee; Chronic pain of left knee 07/08/[address] [facility] Neuro Muscle [address] [facility] 6th [place] [address] [place] [address] Adele Morgan RN 07/05/[address] [facility] Movement Disorders [address] [place] [address] Anyi Perez CMA from Last 3 Months Immunizations Name Administration Dates Next Due Influenza, Quadrivalent, Rec ombinant, Egg Free, Preservative Free, Intramuscular 05/14/2020,06/21/2019 Pfizer SARS-CoV-2 Monovalent Vaccination (12+ Yrs) PURPLE 11/13/2020,11/13/2020,10/22/2020,10/22 Pneumococcal Conjugate PCV 13 02/03/2021, 019 ZOSTER LIVE 04/10/2017 ZOSTER Recombinant 09/13/2019,06/29/2019 Surgical History Surgery Date Site/Laterality Comments KNEE SURGERY Knee Surgery - (Added by TW Conv) WI LIGATION OF SPERM DUCT Surgery Vas Deferens Ligation - 1997 (Added by TW Conv) FLUORO GUIDED ASPIRATION OR INJECTION LARGE JOINT LEFT 02/14/2019 Left FLUORO GUIDED ASPIRATION OR INJECTION LARGE JOINT LEFT 04/04/2019 Left JOINT REPLACEMENT HIP SURGERY 08/28/2013 - 08/27/2014 Bilateral HERNIA REPAIR 08/28/1984 - 08/27/1985 Hernia repair HERNIA REPAIR 02/25/2021 XI LIH VASECTOMY 08/28/1987 - 08/27/1988 TONSILLECTOMY 08/28/1956 - 08/27/1957 COLONOSCOPY 2019 Medical History Medical History Date Comments Hx Other Medical 1997 vasectomy Hx Other Medical 10/2011 R TKR Hx Other Medical JRA Hypothyroidism Hypothyroidism Hyperlipidemia Hyperlipidemia Personal history of other en docrine, nutritional and metabolic disease History of hypothyro idism - (Added by TW Conv) History of total hip replace ment, bilateral HL (hearing loss) Arthritis Muscle pain Depression Peripheral neuropathy Vertigo Osteoarthritis Allergic rhinitis Rheumatoid arthritis (HCC) GERD (gastroesophageal reflux disease) Hearing aid worn R ear since 201 9 Anxiety childhood Family History Medical History Relation Name Comments Arthritis Father Oli Dementia Father Oli Depression Father Oli Memory loss Father Oli Osteoarthritis Father Oli Thyroid cancer Father Oli Heart disease Mother Sharee Family history of cardiac disorder - (Added by TW Conv) Pain Mother Sharee Stroke Mother Sharee Arthritis Other Depression Sister 1 Lianet Sepsis Infection Sister 1 Lianet Anesthesia problems Neg Hx Glaucoma Neg Hx Macular degeneration Neg Hx Relation Name Status Comments Father Oli Mother Sharee Other Sister 1 Lianet Sister 2 Alive Social History Tobacco Use Types Packs/Day Years [...] AM CDT Legal Sex Male 2:36 AM CHECKER Gender Identity Not on file Sexual Orientation Straight 11/27/2018 11 :24 AM CDT Obstetrics History Last Filed Vital Signs Vital Sign Reading Time Taken Comments Blood Pressure 119/82 2024 2:05 PM CHECKER Pulse 56 2024 2:05 PM CHECKER Temperature 36.5 ??C (97.7 ??F) 2024 2:05 PM CS T Respiratory Rate 16 2024 2:05 PM CHECKER Oxygen Saturation 95% 2024 2:05 PM CHECKER Inhaled Oxygen Concentration - - Weight 86.2 kg (190 lb) 2024 2:08 PM CHECKER Height 180.3 cm (5' 11 ) 07/19/2024 2:43 PM CHECKER Body Mass Index 26.5 07/19/2024 2:43 PM CHECKER Plan of Treatment Health Maintenance Due Date Last Done Comments Depression Screening 1955 Hepatitis C Screening 1955 Prostate Cancer Screening-PSA 1955 DTaP/Tdap/Td Vaccine (1 - Tdap) 1966 Hepatitis B Screening 1973 Well Visit 65+ 2020 Pneumococcal vaccine 65+ (2 of 2 - PPSV23 or PCV20) 03/31/2021 02/03/2021, 02/08/2019 Covid-19 Vaccine (5 - 2023-2 5 season) 2024 11/13/2020, 11/13/2020, 10/22/2020, Additional history exists Influenza Vaccine (#1) 2024 05/14/2020, 2018 Fall Risk Assessment 2025 2024 Colon Cancer Screening-Colonoscopy 07/30/2030 07/30/2020, 06/28/2013 Zoster Vaccine Completed 09/13/2019, 09/2018, 04/10/2017 Colon Cancer Screening-CT Colonography Discontinued 07/30/2020, 06/28/2013 Colon Cancer Screening-DNA Stool Discontinued 07/30/20, 06/28/2013 Colon Cancer Screening-FIT Discontinued 07/30/2020, Colon Cancer Screening-Sigmoidoscopy Discontinued 07/30/2020, 06/28/2013 Medical Devices Implanted Type Area Remote Inpatient Coder Device Identifier Shelf Expiration Date Model / Serial / Lot Rt Total Knee Arthroplasty Right: Knee Bilateral Total Hip Arthroplasty Bilateral: Hip [employer] [id number] Progrip 15x9cm Self Configuration Manager Rectangle Mesh Surgical Polyester Hernia - [id number] Implanted:Qty: 1 on 02/25/2021 by Manny Bhatti MD at [facility] Left: Inguinal [employer] 10/25/2025 [id number] / / [id number] [employer] Prosthesis Uro Prostate Urethra Cartridge Urolift 2 Ul2-C - [id number] Implanted:Qty: 1 on 12/05/2023 at [facility] N/A: Prostate [employer] 02/28/2025 UL2-C / / [id number] [employer] Prosthesis Uro Prostate Urethra Cartridge Urolift 2 Ul2-C - [id number] Implanted:Qty: 1 on 12/05/2023 at [facility] N/A: Prostate [employer] 02/22/2025 UL2-C / / [id number] [employer] Prosthesis Uro Prostate Urethra Cartridge Urolift 2 Ul2-C - [id number] Implanted:Qty: 1 on 12/05/2023 at [facility] N/A: Prostate [employer] 02/28/2025 UL2-C / / [id number] [employer] Prosthesis Uro Prostate Urethra Cartridge Urolift 2 Ul2-C - [id number] Implanted:Qty: 1 on 12/05/2023 at [facility] N/A: Prostate [employer] 02/22/2025 UL2-C / / [id number] [employer] Prosthesis Uro Prostate Urethra Cartridge Urolift 2 Ul2-C - [id number] Implanted:Qty: 1 on 12/05/2023 at [facility] N/A: Prostate [employer] 02/28/2025 UL2-C / / [id number] Procedures Procedure Name Priority Date/Time Associated Diagnosis Comments XR ANKLE LEFT 3 OR MORE VIEWS Schedule Routine, Read Routine (OP Routine) 07/19/2024 2:50 PM CHECKER Left ankle pain, unspecified chronicity XR FOOT LEFT 3 OR MORE VIEWS Schedule Routine, Read Routine (OP Routine) 07/19/2024 2:50 PM CHECKER Left foot pain COLONOSCOPY 07/30/2020 10:34 AM CHECKER from Last 3 Months or Most Recently Relevant to Health Maintenance Results * XR Foot Left 3+ View (07/19/2024 2:50 PM CHECKER) Anatomical Region Laterality Modality Lower Extremities, Foot Left Computed Radiography 07/19/2024 3:07 PM CHECKER Impressions 07/19/2024 3:07 PM CHECKER 1. ??Unchanged left pes cavovarus with mild hallux valgus and bunion deformity. 2. ??Unchanged mild left ankle and left great toe metatarsophalangeal joint osteoarthritis. 3. ??Unchanged left distal Achilles tendinopathy. Electronically signed by: Nic Díaz M.D. Narrative 07/19/2024 3:07 PM CHECKER EXAMINATION: XR FOOT LEFT 3 OR MORE [...] by: Nic Díaz M.D. Bianca Street NP [facility] [place] XR PROCEDURES Final Result * XR Ankle Left 3+ View (07/19/2024 2:50 PM CHECKER) Anatomical Region Laterality Modality Lower Extremities, Ankle Left Compute d Radiography 07/19/2024 3:07 PM CHECKER Impressions 07/19/2024 3:07 PM CHECKER 1. ??Unchanged left pes cavovarus with mild hallux valgus and bunion deformity. 2. ??Unchanged mild left ankle and left great toe metatarsophalangeal joint osteoarthritis. 3. ??Unchanged left distal Achilles tendinopathy. Electronically signed by: Nic Díaz M.D. Narrative 07/19/2024 3:07 PM CHECKER EXAMINATION: XR FOOT LEFT 3 OR MORE [...] tendinopathy. Electronically signed by: Nic Díaz M.D. us Bianca Street NP IMG XR PROCEDURES Final Result * COLONOSCOPY (07/30/2020 10:34 AM CHECKER) Anatomical Region Laterality Modality Other Narrative Procedure Note Jacek Mahmood MD - 07/30/2020 10:34 AM CST [facility] Patient Name: Shaggy Allison Procedure Date: 07/30/2020 10:34 AM Date of : 1955 Admit Type: Outpatient Age: 64 Gender: Male Attending MD: Jacek Mahmood M.D. Room: [facility] ENDOSCOPY ROOM 02 Note Status: Finalized Procedure: [...] The scope was passed under direct vision.The [id number] Colonoscope was introduced through the anus and [...] On: 07/30/2020 10:34 AM Recognized by the [employer] for promoting quality in endoscopy Jacek Mahmood MD ENDOSCOPY PROCEDURES Final R esult from Last 3 Months or Most Recently Relevant to Health Maintenance Insurance [employer] MEDICARE GOLD [employer] CHOICE MEDICARE PPO [employer] MEDICARE GOLD Advance Directives For more information, please contact: [phone] * Full Code (Latest Code Status on File) Date Activated Date Inactivated Comments 07/30/2020 9:52 AM 07/30/2020 4:22 PM Care Teams Field Installer Relationship Specialty Start Date End Date Andres Parker MD PCP - General Family Medicine 04/05/22
--- OUTSIDE RECORDS SUMMARY | 2024-09-20 15:05 | XMS_ITS | Clinical Summary ---
Author Organization [facility] Address [address] [place] [address] Care Team Providers Care Commercial Artist Name Role Phone Andres Parker MD Primary Care Provider [phone]- [phone] Allergies Active Allergy Reactions Criticality Noted Date Comments Tetracycline Rash,Unknown Low 10/22/2014 Pancreatitis Medications clonazePAM (KlonoPIN) 2 mg tablet 2 tabs (4 mg) by mouth each morning; 1 tab (2 mg) at lunch; 2 tabs (4 mg) at supper each day 2 Active levothyroxine 125 mcg tablet 1 Active magnesium oxide 400 mg magnesium Capsule Take by mouth. Activ e multivitamins with minerals Tablet Take 1 Tablet by mouth daily. Active omega 3-uje-vah-fish oil 100-160-1,000 mg Capsule Take 2 Tablets by mouth daily. Active tadalafil (CIALIS) 5 mg tablet Take 5 mg by mouth daily. 2 Active DULoxetine (CYMBALTA) 30 mg Capsule, Delayed Release(E.C.) Take 30 mg by mouth daily. 3 Active allopurinoL (ZYLOPRIM) 300 mg tablet Take 300 mg by mouth every other day. 3 Active carBAMazepine (TEGretol XR) 400 mg Extended Release 12 hour tablet Take 400 mg by mouth 2 times daily. 3 Active clindamycin (CLEOCIN) 150 mg capsule Take 450 mg by mouth. Once before dental apt 1 Active gabapentin (NEURONTIN) 300 mg capsule Take 300 mg by mouth. 3 caps in the morning and 2 at night 3 Active tamsulosin (FLOMAX) 0.4 mg capsule Take 0.4 mg by mouth daily. 3 Active triamcinolone acetonide (KENALOG) 0.1 % Cream Apply to affected area 2 times daily. 3 Active oxyBUTYnin (DITROPAN XL) 10 mg Extended Release 24 hour tablet Take 10 mg by mouth daily. Active tavaborole 5 % Solution With Applicator APPLY TOPICALLY TO AFFECTED AREA OF THE TOENAILS 4 Active Active Problems Problem Noted Date Diagnosed Date Hyperhidrosis 06/06/2022 Encounters Date Type Department Care Team Description 07/30/2024 Orders Only [facility] - [place] [address] [place] [address] Gonzalez Houser MD 07/24/2024 11:15 AM ACTUARIAL DIRECTOR Office Visit [facility] [address] [place] [address] Gonzalez Houser MD Lung nodule (Primary Dx) 07/22/2024 Orders Only [facility] - [place] [address] [place] [address] Gonzalez Houser MD Hyperhidrosis (Primary Dx) 07/01/2024 External Device Data STL ABSTRACTION Provider, Abstract 07/01/2024 Orders Only [facility] [address] [place] [address] Gonzalez Houser MD from Last 3 Months Social History Tobacco Use Types Packs/Day Years Used Date Smoking Tobacco: Never Smokeless Tobacco: Never Tobacco Cessation:Counseling Given: Not Answered Sex and Gender Information Value Date Recorded Sex Assigned at Not on file Legal Sex Male 3:08 PM CDT Gender Identity Not on file Sexual Orientation Not on file Last Filed Vital Signs Vital Sign Reading Time Taken Comments Blood Pressure 131/80 07/24/2024 12:08 PM ACTUARIAL DIRECTOR Pulse 46 07/24/2024 12:08 PM ACTUARIAL DIRECTOR Temperature 36.7 ??C (98.1 ??F) 07/10/2023 10:[address] Respiratory Rate 16 07/24/2024 12:08 PM ACTUARIAL DIRECTOR Oxygen Saturation 96% 07/24/2024 12:08 PM ACTUARIAL DIRECTOR Inhaled Oxygen Concentration - - Weight 86.3 kg (190 lb 3.2 oz) 07/24/2024 12:08 PM ACTUARIAL DIRECTOR Height 180.3 cm (5' 11 ) 06/06/2022 2:57 PM CDT Body Mass Index 26.53 06/06/2022 2:57 PM CDT Plan of Treatment Upcoming Encounters Date Type Department Care Team (Late st Contact Info) Description 08/01/2025 10:00 AM ACTUARIAL DIRECTOR Office Visit [facility] - [place] [address] [facility] [address] [place] [address] Gonzalez Houser MD [address] [facility] [address] [place] [address] Health Maintenance Due Date Last Done Comments Pre-Diabetes and Diabetes Screening 1955 DTAP/TDAP/TD VACCINES (1 - Tdap) 1974 FIT-DNA Q 3 years 2000 FIT/FOBT Q 1 year 2000 Flex Sig/CT Colonography Q 5 years 2000 PNEUMOCOCCAL VACCINE 65+ YEA RS (2 of 2 - PPSV23) 02/03/2022 02/03/2021, 02/08/2019 INFLUENZA VACCINE (#1) 2024 05/14/2020, 2018 COVID-19 Vaccine (3 - season) 2024, 10/22/2020 COLORECTAL SCREENING 07/30/2030 07/30/2020, 07/30/20 Colorectal Cancer Screening 07/30/2030 RSV VACCINE (60+ or ) (1 - 1-dose 75+ series) 2030 ZOSTER VACCINE Completed 09/13/2019, 09/2018, 04/10/2017 Procedures Procedure Name Priority Date/Time Associated Diagnosis Comments CBC WITH DIFFERENTIAL Routine 07/24/2024 9:24 AM ACTUARIAL DIRECTOR COMPREHENSIVE METABOLIC PANEL Routine 07/24/2024 9:21 AM ACTUARIAL DIRECTOR BASIC METABOLIC PANEL Routine 07/24/2024 9:18 AM ACTUARIAL DIRECTOR CREATININE Routine 07/01/2024 12:[address] CHEST W CONTRAST Routine 07/01/2024 1 0:58 AM ACTUARIAL DIRECTOR from Last 3 Months Results * CBC WITH DIFFERENTIAL (07/24/2024 9:24 AM ACTUARIAL DIRECTOR) Blood us Gonzalez Houser MD HEMATOLOGY ORDERABLES Final Res ult * COMPREHENSIVE METABOLIC PANEL (07/24/2024 9:21 AM ACTUARIAL DIRECTOR) Blood us Gonzalez Houser MD CHEMISTRY ORDERABLES Final Resu lt * BASIC METABOLIC PANEL (07/24/2024 9:18 AM ACTUARIAL DIRECTOR) Blood us Gonzalez Houser MD CHEMISTRY ORDERABLES Final Resu lt * CREATININE (07/01/2024 12:33 PM ACTUARIAL DIRECTOR) Blood us Gonzalez Houser MD CHEMISTRY ORDERABLES Final Resu lt * CT CHEST W CONTRAST (07/01/2024 10:58 AM ACTUARIAL DIRECTOR) Anatomical Region Laterality Modality Chest Other us Gonzalez Houser MD CT ORDERABLES Final Result from Last 3 Months Insurance [facility] [id number] [facility] [id number] [facility] MCR Care Teams Commercial Artist Relationship Specialty Start Date End Date Andres Parker MD PCP - General Family Practice 06/06/22
--- OUTSIDE RECORDS SUMMARY | 2024-09-20 15:05 | XMS_ITS | Clinical Summary ---
Author Organization [facility] Address [address] [place] [address] [place] [address] Care Team Providers Care Assembler Skylights Name Role Phone Andres Parker MD Primary Care Provider [phone] Allergies Active Allergy Reactions Criticality Noted Date Comments Tetracycline Rash Low 07/25/2020 Medications No known medications Encounters Date Type Department Care Team Description 09/11/2024 4:58 PM CARDIAC EXERCISE SPECIALIST - 09/12/2024 12:15 AM CARDIAC EXERCISE SPECIALIST Emergency [facility] [place] [address] Ana Rosa Braun MD Medical Problem Discharge Disposition: Home or Self Care (Routine Discharge) 09/11/2024 Travel from Last 3 Months Social History Tobacco Use Types Packs/Day Years Used Date Smoking Tobacco: Never Smokeless Tobacco: Never Alcohol Use Standard Drinks/Week Comments Not Currently 0 (1 standard drink = 0.6 oz pur e alcohol) Sex and Gender Information Value Date Recorded Sex Assigned at Male 09/11/2024 4:56 PM CARDIAC EXERCISE SPECIALIST Legal Sex Male 7:02 PM CDT Gender Identity Not on file Sexual Orientation Not on file Last Filed Vital Signs Vital Sign Reading Time Taken Comments Blood Pressure 148/87 09/11/2024 9:46 PM CARDIAC EXERCISE SPECIALIST Pulse 46 09/11/2024 9:46 PM CARDIAC EXERCISE SPECIALIST Temperature 36.3 ??C (97.4 ??F) 09/11/2024 4:38 PM CS T Respiratory Rate 18 09/11/2024 4:38 PM CARDIAC EXERCISE SPECIALIST Oxygen Saturation 96% 09/11/2024 9: 47 PM CARDIAC EXERCISE SPECIALIST Inhaled Oxygen Concentration - - Weight 90.1 kg (198 lb 10.2 oz) 09/11/2024 4:38 PM CARDIAC EXERCISE SPECIALIST Height 180.3 cm (5' 11 ) 09/11/2024 4:38 PM CARDIAC EXERCISE SPECIALIST Body Mass Index 27.7 09/11/2024 4:38 PM CARDIAC EXERCISE SPECIALIST Plan of Treatment Health Maintenance Due Date Last Done Comments Colorectal Cancer Screening Colonoscopy (10 Years) 1955 Hepatitis C 1973 DTaP, Tdap and Td Vaccines ( 1 - Tdap) 1974 Annual Medicare Wellness Visit 2020 Pneumococcal Vaccine: 65+ Years (2 of 2 - PPSV23 or PCV20) 02/03/2022 02/03/2021, 02/08/2019 COVID-19 Vaccine (3 - 2023-2 5 season) 2024 11/13/2020, 10/22/2020 Influenza Adult (#1) 2024 05/14/2020, 06/21/2019 RSV Immunization or 60+ Years (1 - 1-dose 75+ series) 2030 Zoster Vaccines Completed 09/13/2019, 06/29/2019, 04/10/2017 Meningococcal Vaccine Aged Out No heena scar eligible based on patient's age to complete this topic RSV Immunizations Under 20 Months Aged Out No longer eligible b ased on patient's age to complete this topic Procedures Procedure Name Priority Date/Time Associated Diagnosis Comments ECG 12-LEAD Routine 09/11/2024 10:16 PM CARDIAC EXERCISE SPECIALIST CARBAMAZEPINE TOTAL STAT 09/11/2024 9 :42 PM CARDIAC EXERCISE SPECIALIST MRI LUMB SPINE WO CON STAT 09/11/2024 8:[address] EXERCISE [address] THOR SPINE WO CON STAT 09/11/2024 7:11 [address] EXERCISE [address] CERV SPINE WO CON STAT 09/11/2024 7:11 [address]AC EXERCISE SPECIALIST CT HEAD WO CON STAT 09/11/2024 7:11 [address] EXERCISE [address] LUMB SPINE WO CON STAT 09/11/2024 5:19 PM CARDIAC EXERCISE SPECIALIST THYROXINE, FREE (FT4) STAT 09/11/2024 5:02 PM CARDIAC EXERCISE SPECIALIST TSH W/REFLEX STAT 09/11/2024 5:02 PM CARDIAC EXERCISE SPECIALIST MAGNESIUM STAT 09/11/2024 5:02 PM CARDIAC EXERCISE SPECIALIST COMPREHENSIVE METABOLIC PANEL STAT 09/11/2024 5:02 PM CARDIAC EXERCISE SPECIALIST CBC W/DIFF AUTOMATED STAT 09/11/2024 5:02 PM CARDIAC EXERCISE SPECIALIST from Last 3 Months Results * ECG 12 lead (09/11/2024 10:16 PM CARDIAC EXERCISE SPECIALIST) 09/11/2024 10:1 6 PM CARDIAC EXERCISE SPECIALIST Narrative [facility] - 09/12/2024 10:51 PM CARDIAC EXERCISE SPECIALIST ?[facility] ? [address] [facility] [place] ? Test Date: ?2024-09-11 Pat Name: ? SHAGGY ALLISON ?Department: ?? 41 ? Room: ? [id number] Gender: ? Male ? 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 : ?1955 ? Requested By: ANA ROSA BRAUN Order Number: [id number] ? Reading : ?? Caden Driscoll ? Measurements Intervals ?Kendall ? Rate: ? 42 ? P: ?35 ME: ? 190 ?QRS: ?0 QRSD: ? 97 ? T: ?7 QT: ? 427 ? QTc: ?358 ? Interpretive Statements SINUS BRADYCARDIA MODERATE VOLTAGE CRITERIA FOR LVH, CONSIDER NORMAL VARIANT ??[MEETS CRITERIA IN ONE OF: R(aVL), S(V1), R(V5), R(V5/V6)+S(V1)] No previous ECG available for comparison IAC EXERCISE SPECIALIST Procedure Note Caden Driscoll MD - 09/12/2024 [facility] [address] [place] [address] Test Date: 2024-09-11 Pat Name: SHAGGY VANDANA Department: 41 Room: [id number] Gender: Male Master Automotive Technician: : 1955 Requested By: ANA ROSA BRAUN Order Number: [id number] Reading MD: Caden Driscoll Measurements Intervals Kendall Rate: 42 P: 35 ME: 190 QRS: 0 QRSD: 97 T: 7 QT: 427 QTc: 358 Interpretive Statements SINUS BRADYCARDIA MODERATE VOLTAGE CRITERIA FOR LVH, CONSIDER NORMAL VARIANT [MEETSCRITERIA IN ONE OF: R(aVL), S(V1), R(V5), R(V5/V6)+S(V1)] No previous ECG available for comparison IAC EXERCISE SPECIALIST Ana Rosa Braun MD ECG ORDERABLES Final Resul t Performing Organization Address City/[facility]/ZIP Co de Phone Number [facility] ([place] RAD * (ABNORMAL) CARBAMAZEPINE TOTAL (09/11/2024 9:42 PM CARDIAC EXERCISE SPECIALIST) CARBAMAZEPINE S/P/B 15.0(H) 4.0 - 12.0 MCG/ML 09/12/2024 1:46 PM CARDIAC EXERCISE SPECIALIST [facility] 09/11/2024 9:42 PM CARDIAC EXERCISE SPECIALIST Ana Rosa Braun MD LABORATORY Final Resul t Performing Organization Address City/[facility]/ZIP Co de Phone Number [facility] [address] [place] [address], [phone] * MRI LUMB SPINE WO CON (09/11/2024 8:34 PM CARDIAC EXERCISE SPECIALIST) Anatomical Region Laterality Modality Spine Magnetic Resonan ce 09/11/2024 8:37 PM CARDIAC EXERCISE SPECIALIST Impressions 09/11/2024 8:42 PM CARDIAC EXERCISE SPECIALIST IMPRESSION: 1. Redemonstration of acute right L1 and L2 transverse process fractures with associated marrow and surrounding soft tissue edema. 2. Multilevel degenerative changes in the lower thoracic and lumbar spine contributing to varying degrees of spinal canal and foraminal stenosis, as detailed above. 3. Likely reactive/degenerative edema noted along the lower thoracic and lumbar endplates and adjacent to endplate Schmorl's nodes. Referred By: ?? Interpreted By: Jitendra Ricci MD, 09/11/2024 8:37 PM Narrative 09/11/2024 8:42 PM CARDIAC EXERCISE SPECIALIST [address] [address] INDICATION: Right-sided L1 and L2 transverse process fractures. EXAMINATION: MRI lumbar spine without contrast. TECHNIQUE: Multiplanar and multisequence MRI images of the lumbar spine were obtained without contrast. COMPARISON: CT lumbar spine done earlier same day. FINDINGS: There are 5 lumbar type vertebral bodies designated as L1 through L5; using this numbering system, the conus medullaris terminates at L2 and appears unremarkable. There is abnormal marrow signal involving the right L1 and L2 transverse processes in keeping with acute fractures seen on earlier CT. Surrounding soft tissue edema also evident. Otherwise the lumbar vertebral alignment, vertebral body heights, and facet alignment are maintained. Multilevel degenerative changes are evident in the lumbar and lower thoracic spine with disc degeneration, endplate osteophytes, ligamentum flavum thickening, and facet hypertrophy noted. Likely reactive/degenerative edema noted along the lumbar endplates and adjacent to endplate Schmorl's nodes. Multilevel disc desiccation. The remainder of the soft tissues reveal no acute findings elsewhere. Renal cysts. T11-T12 disc bulge. Left paracentral protrusion. Ligamentous and facet hypertrophy. Mild canal stenosis. Foramina patent. T12-L1: Disc bulge with extension into the foramina. Ligamentous and facet hypertrophy. No significant canal or foraminal narrowing. L1-L2: Mild disc bulge. Ligamentous and facet hypertrophy. No significant canal or foraminal narrowing. L2-L3: Disc bulge with extension into the foramina. Superimposed right foraminal protrusion. Ligamentous and facet hypertrophy. Encroachment of the lateral recesses and traversing nerve roots, more so on the right. Mild canal stenosis. No significant foraminal narrowing. L3-L4: Mild disc bulge with extension into the foramina. Endplate osteophytes. Ligamentous and facet hypertrophy. Flattening of the ventral thecal sac and abutment of the traversing nerve roots. Mild canal stenosis. Mild to moderate left and mild right foraminal narrowing. L4-L5: Disc bulge with extension into the foramina. Left paracentral protrusion. Endplate osteophytes. Facet hypertrophy. Mild Mild canal stenosis. Moderate to severe left and moderate right foraminal narrowing. L5-S1: Disc bulge with extension into the foramina. Endplate osteophytes. Facet hypertrophy. No significant canal stenosis. Moderate and mild left foraminal narrowing. Procedure Note Jitendra Ricci MD - 09/11/[address] [address] INDICATION: Right-sided L1 and L2 transverse process fractures. EXAMINATION: MRI lumbar spine without contrast. TECHNIQUE: Multiplanar and multisequence MRI images of the lumbar spine were obtainedwithout contrast. COMPARISON: CT lumbar spine done earlier same day. FINDINGS: There are 5 lumbar type vertebral bodies designated as L1 through L5;using this numbering system, the conus medullaris terminates at L2 andappears unremarkable. There is abnormal marrow signal involving the right L1 and L2 transverseprocesses in keeping with acute fractures seen on earlier CT. Surroundingsoft tissue edema also evident. Otherwise the lumbar vertebral alignment, vertebral body heights, andfacet alignment are maintained. Multilevel degenerative changes areevident in the lumbar and lower thoracic spine with disc degeneration,endplate osteophytes, ligamentum flavum thickening, and facet hypertrophynoted. Likely reactive/degenerative edema noted along the lumbar endplatesand adjacent to endplate Schmorl's nodes. Multilevel disc desiccation. The remainder of the soft tissues reveal no acute findings elsewhere.Renal cysts. T11-T12 disc bulge. Left paracentral protrusion. Ligamentous and facethypertrophy. Mild canal stenosis. Foramina patent. T12-L1: Disc bulge with extension into the foramina. Ligamentous and facethypertrophy. No significant canal or foraminal narrowing. L1-L2: Mild disc bulge. Ligamentous and facet hypertrophy. No significantcanal or foraminal narrowing. L2-L3: Disc bulge with extension into the foramina. Superimposed rightforaminal protrusion. Ligamentous and facet hypertrophy. Encroachment ofthe lateral recesses and traversing nerve roots, more so on the right.Mild canal stenosis. No significant foraminal narrowing. L3-L4: Mild disc bulge with extension into the foramina. Endplateosteophytes. Ligamentous and facet hypertrophy. Flattening of the ventralthecal sac and abutment of the traversing nerve roots. Mild canalstenosis. Mild to moderate left and mild right foraminal narrowing. L4-L5: Disc bulge with extension into the foramina. Left paracentralprotrusion. Endplate osteophytes. Facet hypertrophy. Mild Mild canalstenosis. Moderate to severe left and moderate right foraminalnarrowing. L5-S1: Disc bulge with extension into the foramina. Endplate osteophytes.Facet hypertrophy. No significant canal stenosis. Moderate and mild leftforaminal narrowing. IMPRESSION: 1. Redemonstration of acute right L1 and L2 transverse process fractureswith associated marrow and surrounding soft tissue edema. 2. Multilevel degenerative changes in the lower thoracic and lumbar spinecontributing to varying degrees of spinal canal and foraminal stenosis, asdetailed above. 3. Likely reactive/degenerative edema noted along the lower thoracic andlumbar endplates and adjacent to endplate Schmorl's nodes. Referred By: Interpreted By: Jitendra Ricci MD, 09/11/2024 8:37 PM Ana Rosa Braun MD MRI Final Resul t * CT THOR SPINE WO CON (09/11/2024 7:11 PM CARDIAC EXERCISE SPECIALIST) Anatomical Region Laterality Modality Spine Computed Tomogra phy 09/11/2024 7:20 PM CARDIAC EXERCISE SPECIALIST Impressions 09/11/2024 7:22 PM CARDIAC EXERCISE SPECIALIST IMPRESSION: 1. No definite acute fractures identified in the thoracic spine. 2. Right L1 transverse process fracture. Please refer to separately reported lumbar spine CT for additional detail. 3. Degenerative changes. Referred By: ?? Interpreted By: Jitendra Ricci MD, 09/11/2024 7:20 PM Narrative 09/11/2024 7:22 PM CARDIAC EXERCISE SPECIALIST [place] [address] INDICATION: Recurrent falls. Balance difficulties. EXAMINATION: CT thoracic spine without contrast. TECHNIQUE: Non contrast CT examination of the thoracic spine was performed with axial and multiplanar reformatted images obtained. A dose lowering technique was used for this procedure, which may include, but is not limited to, dose reduction technique, automated exposure control, the use of iterative reconstruction, and ALARA (As Low As Reasonably Achievable) / Image Gently techniques. COMPARISON: None FINDINGS: The thoracic vertebral alignment, vertebral body heights, and facet alignment are maintained. No definite acute fractures identified in the thoracic spine. Multilevel degenerative changes are evident in the thoracic spine with disc degeneration, endplate osteophytes, and facet hypertrophy noted. Right L1 transverse process fracture again noted. Imaged portions of the soft tissues reveal granulomatous calcifications. Procedure Note Jitendra Ricci MD - 09/11/2024 [place] [address] INDICATION: Recurrent falls. Balance difficulties. EXAMINATION: CT thoracic spine without contrast. TECHNIQUE: Non contrast CT examination of the thoracic spine was performed with axialand multiplanar reformatted images obtained. A dose lowering technique was used for this procedure, which may include,but is not limited to, dose reduction technique, automated exposurecontrol, the use of iterative reconstruction, and ALARA (As Low AsReasonably Achievable) / Image Gently techniques. COMPARISON: None FINDINGS: The thoracic vertebral alignment, vertebral body heights, and facetalignment are maintained. No definite acute fractures identified in thethoracic spine. Multilevel degenerative changes are evident in thethoracic spine with disc degeneration, endplate osteophytes, and facethypertrophy noted. Right L1 transverse process fracture again noted.Imaged portions of the soft tissues reveal granulomatous calcifications. IMPRESSION: 1. No definite acute fractures identified in the thoracic spine. 2. Right L1 transverse process fracture. Please refer to separatelyreported lumbar spine CT for additional detail. 3. Degenerative changes. Referred By: Interpreted By: Jitendra Ricci MD, 09/11/2024 7:20 PM Ana Rosa Braun MD CT Final Resul t * CT HEAD WO CON (09/11/2024 7:11 PM CARDIAC EXERCISE SPECIALIST) Anatomical Region Laterality Modality Head Computed Tomogra phy 09/11/2024 7:15 PM CARDIAC EXERCISE SPECIALIST Impressions 09/11/2024 7:19 PM CARDIAC EXERCISE SPECIALIST IMPRESSION: HEAD CT: 1. No definite CT evidence of acute intracranial abnormality, as above. 2. Small vessel disease and volume loss. CERVICAL SPINE CT: 1. No definite acute fractures identified in the cervical spine. 2. Degenerative changes. Referred By: ?? Interpreted By: Jitendra Ricci MD, 09/11/2024 7:15 PM Narrative 09/11/2024 7:19 PM CARDIAC EXERCISE SPECIALIST [place] [address] EXAMINATION: CT of the head and CT cervical spine without contrast CLINICAL HISTORY: Recurrent falls. Head injury. COMPARISON: 10/20/2020 TECHNIQUE: CT examinations of the head and cervical spine were performed without contrast, with axial and multiplanar reformatted images obtained. A dose lowering technique was used for this procedure, which may include, but is not limited to, dose reduction technique, automated exposure control, the use of iterative reconstruction, and ALARA (As Low As Reasonably Achievable) / Image Gently techniques. FINDINGS: HEAD CT: No acute intracranial hemorrhage, extra-axial collections, intracranial mass effect, or midline shift. Patchy foci of hypodensity noted in the hemispheric white matter, likely due to small vessel disease. Intracranial vascular calcifications. No definite CT evidence of acute territorial infarction, though MRI would be more sensitive. Moderate volume loss with enlargement of ventricles and extra-axial/subarachnoid spaces. No depressed calvarial fractures. Mastoid air cells clear. Paranasal sinuses clear. CERVICAL SPINE CT: There is 2 mm anterolisthesis of C4 on C5 and retrolisthesis of C5 on C6. Rotation of C1 relative to C2. Variant incomplete fusion posterior C1 arch. Mid to lower cervical levoscoliosis. Otherwise the cervical vertebral alignment, vertebral body heights, and facet alignment are maintained. No definite acute fractures identified in the cervical spine. Multilevel degenerative changes are evident in the cervical spine with disc degeneration, endplate/uncovertebral osteophytes, and facet hypertrophy noted. Greatest loss of disc height at C5-C6 and C6-C7 with reactive/degenerative endplate sclerosis. Imaged portions of the neck soft tissues reveal no definite acute findings. Procedure Note Jitendra Ricci MD - 09/11/[address] [address] EXAMINATION: CT of the head and CT cervical spine without contrast CLINICAL HISTORY: Recurrent falls. Head injury. COMPARISON: 10/20/2020 TECHNIQUE: CT examinations of the head and cervical spine were performedwithout contrast, with axial and multiplanar reformatted imagesobtained. A dose lowering technique was used for this procedure, which may include,but is not limited to, dose reduction technique, automated exposurecontrol, the use of iterative reconstruction, and ALARA (As Low AsReasonably Achievable) / Image Gently techniques. FINDINGS: HEAD CT: No acute intracranial hemorrhage, extra-axial collections, intracranialmass effect, or midline shift. Patchy foci of hypodensity noted in thehemispheric white matter, likely due to small vessel disease. Intracranialvascular calcifications. No definite CT evidence of acute territorialinfarction, though MRI would be more sensitive. Moderate volume loss withenlargement of ventricles and extra-axial/subarachnoid spaces. Nodepressed calvarial fractures. Mastoid air cells clear. Paranasal sinusesclear. CERVICAL SPINE CT: There is 2 mm anterolisthesis of C4 on C5 and retrolisthesis of C5 on C6.Rotation of C1 relative to C2. Variant incomplete fusion posterior C1arch. Mid to lower cervical levoscoliosis. Otherwise the cervicalvertebral alignment, vertebral body heights, and facet alignment aremaintained. No definite acute fractures identified in the cervical spine.Multilevel degenerative changes are evident in the cervical spine withdisc degeneration, endplate/uncovertebral osteophytes, and facethypertrophy noted. Greatest loss of disc height at C5-C6 and C6-C7 withreactive/degenerative endplate sclerosis. Imaged portions of the neck softtissues reveal no definite acute findings. IMPRESSION: HEAD CT: 1. No definite CT evidence of acute intracranial abnormality, as above. 2. Small vessel disease and volume loss. CERVICAL SPINE CT: 1. No definite acute fractures identified in the cervical spine. 2. Degenerative changes. Referred By: Interpreted By: Jitendra Ricci MD, 09/11/2024 7:15 PM Ana Rosa Braun MD CT Final Resul t * CT CERV SPINE WO CON (09/11/2024 7:11 PM CARDIAC EXERCISE SPECIALIST) Anatomical Region Laterality Modality Spine Computed Tomogra phy 09/11/2024 7:15 PM CARDIAC EXERCISE SPECIALIST Impressions 09/11/2024 7:19 PM CARDIAC EXERCISE SPECIALIST IMPRESSION: HEAD CT: 1. No definite CT evidence of acute intracranial abnormality, as above. 2. Small vessel disease and volume loss. CERVICAL SPINE CT: 1. No definite acute fractures identified in the cervical spine. 2. Degenerative changes. Referred By: ?? Interpreted By: Jitendra Ricci MD, 09/11/2024 7:15 PM Narrative 09/11/2024 7:19 PM CARDIAC EXERCISE SPECIALIST [address] [address] EXAMINATION: CT of the head and CT cervical spine without contrast CLINICAL HISTORY: Recurrent falls. Head injury. COMPARISON: 10/20/2020 TECHNIQUE: CT examinations of the head and cervical spine were performed without contrast, with axial and multiplanar reformatted images obtained. A dose lowering technique was used for this procedure, which may include, but is not limited to, dose reduction technique, automated exposure control, the use of iterative reconstruction, and ALARA (As Low As Reasonably Achievable) / Image Gently techniques. FINDINGS: HEAD CT: No acute intracranial hemorrhage, extra-axial collections, intracranial mass effect, or midline shift. Patchy foci of hypodensity noted in the hemispheric white matter, likely due to small vessel disease. Intracranial vascular calcifications. No definite CT evidence of acute territorial infarction, though MRI would be more sensitive. Moderate volume loss with enlargement of ventricles and extra-axial/subarachnoid spaces. No depressed calvarial fractures. Mastoid air cells clear. Paranasal sinuses clear. CERVICAL SPINE CT: There is 2 mm anterolisthesis of C4 on C5 and retrolisthesis of C5 on C6. Rotation of C1 relative to C2. Variant incomplete fusion posterior C1 arch. Mid to lower cervical levoscoliosis. Otherwise the cervical vertebral alignment, vertebral body heights, and facet alignment are maintained. No definite acute fractures identified in the cervical spine. Multilevel degenerative changes are evident in the cervical spine with disc degeneration, endplate/uncovertebral osteophytes, and facet hypertrophy noted. Greatest loss of disc height at C5-C6 and C6-C7 with reactive/degenerative endplate sclerosis. Imaged portions of the neck soft tissues reveal no definite acute findings. Procedure Note Jitendra Ricci MD - 09/11/[address] [address] EXAMINATION: CT of the head and CT cervical spine without contrast CLINICAL HISTORY: Recurrent falls. Head injury. COMPARISON: 10/20/2020 TECHNIQUE: CT examinations of the head and cervical spine were performedwithout contrast, with axial and multiplanar reformatted imagesobtained. A dose lowering technique was used for this procedure, which may include,but is not limited to, dose reduction technique, automated exposurecontrol, the use of iterative reconstruction, and ALARA (As Low AsReasonably Achievable) / Image Gently techniques. FINDINGS: HEAD CT: No acute intracranial hemorrhage, extra-axial collections, intracranialmass effect, or midline shift. Patchy foci of hypodensity noted in thehemispheric white matter, likely due to small vessel disease. Intracranialvascular calcifications. No definite CT evidence of acute territorialinfarction, though MRI would be more sensitive. Moderate volume loss withenlargement of ventricles and extra-axial/subarachnoid spaces. Nodepressed calvarial fractures. Mastoid air cells clear. Paranasal sinusesclear. CERVICAL SPINE CT: There is 2 mm anterolisthesis of C4 on C5 and retrolisthesis of C5 on C6.Rotation of C1 relative to C2. Variant incomplete fusion posterior C1arch. Mid to lower cervical levoscoliosis. Otherwise the cervicalvertebral alignment, vertebral body heights, and facet alignment aremaintained. No definite acute fractures identified in the cervical spine.Multilevel degenerative changes are evident in the cervical spine withdisc degeneration, endplate/uncovertebral osteophytes, and facethypertrophy noted. Greatest loss of disc height at C5-C6 and C6-C7 withreactive/degenerative endplate sclerosis. Imaged portions of the neck softtissues reveal no definite acute findings. IMPRESSION: HEAD CT: 1. No definite CT evidence of acute intracranial abnormality, as above. 2. Small vessel disease and volume loss. CERVICAL SPINE CT: 1. No definite acute fractures identified in the cervical spine. 2. Degenerative changes. Referred By: Interpreted By: Jitendra Ricci MD, 09/11/2024 7:15 PM us Ana Rosa Braun MD CT Final Resul t * CT LUMB SPINE WO CON (09/11/2024 5:19 PM CARDIAC EXERCISE SPECIALIST) Anatomical Region Laterality Modality Spine Computed Tomogra phy 09/11/2024 5:58 PM CARDIAC EXERCISE SPECIALIST Impressions 09/11/2024 6:08 PM CARDIAC EXERCISE SPECIALIST IMPRESSION: 1. ??Nondisplaced fractures of the right transverse process of L1 and L2. 2. ??Diffuse degenerative changes. 3. ??Multilevel spinal and foraminal stenosis. Referred By: ?? Interpreted By: Ricardo Bo MD, 09/11/2024 5:58 PM Narrative 09/11/2024 6:08 PM CARDIAC EXERCISE SPECIALIST [address] [address] EXAM: CT LUMB SPINE WO CON DATE: 09/11/2024 COMPARISON: None INDICATION: Low back pain, fall TECHNIQUE: Noncontrast imaging A dose lowering technique was used for this procedure, which may include, but is not limited to, dose reduction technique, automated exposure control, iterative reconstruction, ALARA (As Low As Reasonably Achievable), or Image Gently techniques. FINDINGS: Multilevel thoracolumbar degenerative disc disease of mild severity. ??Multiple anterior and lateral osteophytes of variable size. ??Probable Schmorl's node in the superior endplate of L3. There are nondisplaced fractures of the right transverse process of L1 and L2. ??With no callus formation, these are probably acute. ??No other acute appearing bone findings. L1-2: Small disc bulge. L2-3: Facet hypertrophy. ??Moderate size disc bulge is partially calcified. ??Mild spinal stenosis. L3-4: Facet hypertrophy. ??Moderate size disc bulge is asymmetric to the right side and is partially calcified. ??Mild spinal stenosis. ??Bilateral foraminal stenosis. L4-5: Facet hypertrophy. ??Moderate disc bulge is partially calcified. ??Bilateral foraminal stenosis. L5-S1: Moderate disc bulge is partially calcified. ??Bilateral foraminal stenosis. ?? 2 cm right kidney cyst does not need follow-up. ??Moderate stool volume in the visualized large bowel. Procedure Note Ricardo Bo MD - 09/11/[address] [address] EXAM: CT LUMB SPINE WO CON DATE: 09/11/2024 COMPARISON: None INDICATION: Low back pain, fall TECHNIQUE: Noncontrast imaging A dose lowering technique was used for this procedure, which may include,but is not limited to, dose reduction technique, automated exposurecontrol, iterative reconstruction, ALARA (As Low As ReasonablyAchievable), or Image Gently techniques. FINDINGS: Multilevel thoracolumbar degenerative disc disease of mildseverity. Multiple anterior and lateral osteophytes of variable size.Probable Schmorl's node in the superior endplate of L3. There are nondisplaced fractures of the right transverse process of L1 andL2. With no callus formation, these are probably acute. No other acuteappearing bone findings. L1-2: Small disc bulge. L2-3: Facet hypertrophy. Moderate size disc bulge is partially calcified.Mild spinal stenosis. L3-4: Facet hypertrophy. Moderate size disc bulge is asymmetric to theright side and is partially calcified. Mild spinal stenosis. Bilateralforaminal stenosis. L4-5: Facet hypertrophy. Moderate disc bulge is partially calcified.Bilateral foraminal stenosis. L5-S1: Moderate disc bulge is partially calcified. Bilateral foraminalstenosis. 2 cm right kidney cyst does not need follow-up. Moderate stool volume inthe visualized large bowel. IMPRESSION: 1. Nondisplaced fractures of the right transverse process of L1 and L2. 2. Diffuse degenerative changes. 3. Multilevel spinal and foraminal stenosis. Referred By: Interpreted By: Ricardo Bo MD, 09/11/2024 5:[address] Final Resul t * (ABNORMAL) TSH W/REFLEX (09/11/2024 5:02 PM CARDIAC EXERCISE SPECIALIST) TSH 0.254(L) 0.358 - 3.74 uIU/ML 09/11/2024 5:52 PM CARDIAC EXERCISE SPECIALIST [facility] Comment: HIGH DOSES OF BIOTIN MAY INTERFERE WITH THIS TEST RESULT. CORRELATION TO CLINICAL HISTORY AND PRESENTATION RECOMMENDED. 09/11/2024 5:02 PM CARDIAC EXERCISE SPECIALIST [facility] Final Resul t [facility] [address] [place] [address], [place] [phone] * (ABNORMAL) COMPREHENSIVE METABOLIC PANEL (09/11/2024 5:02 PM CARDIAC EXERCISE SPECIALIST) GLUCOSE 142(H) 70 - 99 MG/DL 09/11/2024 5:52 PM CARDIAC EXERCISE SPECIALIST [facility] BUN 15 7 - 18 MG/DL 09/11/2024 5:52 PM [facility] CREATININE S/P/B 1.10 0.7 - 1.3 MG/DL 09/11/2024 5:52 PM [facility] SODIUM S/P/B 136 136 - 145 MMOL/L 09/11/2024 5:52 PM [facility] POTASSIUM S/P/B 3.9 3.5 - 5.1 MMOL/L 09/11/2024 5:52 PM [facility] CHLORIDE S/P/B 103 97 - 115 MMOL/L 09/11/2024 5:52 PM [facility] CO2 28.6 21 - 32 MMOL/L 09/11/2024 5:52 PM [facility] CALCIUM S/P/B 8.7 8.5 - 10.1 MG/DL 09/11/2024 5:52 PM [facility] BILIRUBIN TOTAL S/P/B 0.3 0.2 - 1.2 MG/DL 09/11/2024 5:52 PM [facility] Comment: THIS ASSAY IS NOT RECOMMENDED FOR PATIENTS UNDERGOING TREATMENT WITH ELTROMBOPAG DUE TO THE POTENTIAL FOR FALSELY ELEVATED RESULTS. TOTAL PROTEIN S/P/B 7.3 6.4 - 8.2 G/DL 09/11/2024 5:52 PM [facility] ALBUMIN S/P/B 3.6 3.4 - 5.0 G/DL 09/11/2024 5:52 PM [facility] AST 32 15 - 37 U/L 09/11/2024 5:52 PM [facility] ALT 42 16 - 60 U/L 09/11/2024 5:52 PM [facility] ALKALINE PHOSPHATASE S/P/B 108 50 - 136 U/L 09/11/2024 5:52 PM [facility] ANION GAP 4.4 2 - 10 MMOL/L 09/11/2024 5:52 PM [facility] BUN CREATININE RATIO 13.6 6 - 26 09/11/2024 5:52 PM [facility] A/G RATIO 1.0 1.0 - 2.0 RATIO 09/11/2024 5:52 PM [facility] GFR ESTIMATE 73(L) >90 ML/MIN/1.7 3 M2 09/11/2024 5:52 PM [facility] Comment: NOTE: eGFR is not calculated for patients <18 years of age or gender unknown. This is an estimated GFR calculation using the new CKD EPI creatinine equation without race and so does not require a correction factor for race. This estimated GFR should not be used for calculating drug doses. 09/11/2024 5:02 PM CARDIAC EXERCISE SPECIALIST us [facility] Final Resul t [facility] [address] [place] [address], * (ABNORMAL) CBC W/DIFF AUTOMATED (09/11/2024 5:02 PM CARDIAC EXERCISE SPECIALIST) WBC 5.87 4.5 - 11.0 x10'3/uL 09/11/2024 5:16 PM [facility] RBC 4.48(L) 4.70 - 6.10 x10'6/uL 09/11/2024 5:16 PM [facility] HGB 13.9(L) 14.0 - 18.0 G/DL 09/11/2024 5:16 PM [facility] HCT 40.7(L) 43.0 - 54.0 % 09/11/2024 5:16 PM [facility] MCV 90.8 80.0 - 94.0 FL 09/11/2024 5:16 PM [facility] MCH 31.0 27.0 - 31.0 PG 09/11/2024 5:16 PM [facility] MCHC 34.2 32.0 - 36.0 G/DL 09/11/2024 5:16 PM [facility] RDW 13.3 11.5 - 14.5 % 09/11/2024 5:16 PM [facility] PLT 174 130 - 400 x10'3/uL 09/11/2024 5:16 PM [facility] MPV 11.1 9.3 - 12.2 FL 09/11/2024 5:16 PM [facility] DIFFERENTIAL TYPE AUTOMATED DIFFERENTIAL 09/11/2024 5:16 PM [facility] NEUTROPHILS % 58.5 % 09/11/2024 5:16 PM [facility] LYMPHOCYTES % 24.2 % 09/11/2024 5:16 PM [facility] MONOCYTES % 6.3 % 09/11/2024 5:16 PM [facility] EOSINOPHILS 10.1 % 09/11/2024 5:16 PM [facility] BASOPHILS 0.7 % 09/11/2024 5:16 PM [facility] IMMATURE GRANS % 0.2 % 09/11/19 5:16 PM [facility] ABS. NEUTROPHILS 3.44 1.80 - 7.70 x10'3/uL 09/11/2024 5:16 PM [facility] ABS. LYMPHOCYTES 1.42 1.00 - 4.80 x10'3/uL 09/11/2024 5:16 PM [facility] ABS. MONOCYTES 0.37 0.30 - 0.82 x10'3/uL 09/11/2024 5:16 PM CARDIAC EXERCISE SPECIALIST [facility] ABS. EOSINOPHILS 0.59(H) 0.04 - 0.54 x10'3/uL 09/11/2024 5:16 PM CARDIAC EXERCISE SPECIALIST [facility] ABS. BASOPHILS 0.04 0.01 - 0.08 x10'3/uL 09/11/2024 5:16 PM CARDIAC EXERCISE SPECIALIST [facility] ABS. IMMATURE GRANULOCYTES 0.01 0.00 - 0.49 x10'3/uL 09/11/2024 5:16 PM CARDIAC EXERCISE SPECIALIST [facility] 09/11/2024 5:02 PM CARDIAC EXERCISE SPECIALIST [facility] Final Resul t Performing Organization Address City/[facility]/ZIP Co de Phone Number [facility] [address] [place] [address], [place] [phone] * THYROXINE, FREE (FT4) (09/11/2024 5:02 PM CARDIAC EXERCISE SPECIALIST) FREE T4 0.83 0.76 - 1.46 NG/DL 09/11/2024 6:06 PM CARDIAC EXERCISE SPECIALIST [facility] 09/11/2024 5:02 PM CARDIAC EXERCISE SPECIALIST [facility] Final Resul t [facility] [address] [place] [address], [place] [phone] * MAGNESIUM (09/11/2024 5:02 PM CARDIAC EXERCISE SPECIALIST) MAGNESIUM 2.2 1.8 - 2.4 MG/DL 09/11/2024 5:52 PM CARDIAC EXERCISE SPECIALIST [facility] 09/11/2024 5:02 PM CARDIAC EXERCISE SPECIALIST us [facility] Final Resul t [facility] [address] [place] [address], [place] [phone] from Last 3 Months Insurance [employer] Care Teams Assembler Skylights Relationship Specialty Start Date End Date Andres Parker MD [employer] [facility] [address] [place] [id number] PCP - General FAMILY PRACTICE 09/11/24
--- OUTSIDE RECORDS SUMMARY | 2024-09-20 15:05 | XMS_ITS | Encounter Summary ---
Author Organization [facility] Address [address] [place] [address] Phone Care Team Providers Care Calender Machine Operator Helper Name Role Phone Musa Cancino MD Primary Care Provider [phone] Andres Parker MD Primary Care Provider [phone] Encounter Details Date Type Department Care Team (Late st Contact Info) Description 02/10/2022 Patient Message [facility] Orthopaedic Surgery [address] [place] [address] Kavin Campo, ABSTRACTOR [address] [facility] [address] [place] [address] question Social History Tobacco Use Types Packs/Day Years Used Date Smoking Tobacco: Never Smokeless Tobacco: Never Alcohol Use Standard Drinks/Week Comments Never 0 (1 standard drink = 0.6 oz pur e alcohol) AUDIT-C Answer Date Recorded Q1: How often do you have a drink containing alc ohol? Never 02/25/2021 Average Number of Drinks Not on file 021 Frequency of Binge Drinking Not on file 08/2020 Sex and Gender Information Value Date Recorded Sex Assigned at Male 11/27/2018 11:24 AM CDT Legal Sex Male 2:36 AM TRIAGE LICENSED PRACTICAL NURSE Gender Identity Not on file Sexual Orientation Straight 11/27/2018 11 :24 AM CDT documented as of this encounter Plan of Treatment Not on file documented as of this encounter Visit Diagnoses Diagnosis Idiopathic peripheral neuropathy- Primary Unspecified hereditary and idiopathic peripheral neuropathy Pain of both heels documented in this encounter Care Teams Calender Machine Operator Helper Relationship Specialty Start Date End Date Musa Cancino MD [address] [place] [address] PCP - General 06/01/12 04/04/22 Andres Parker MD [address] [place] [address] PCP - General Family Medicine 04/05/22 documented as of this encounter
== END 2024-09-20 15:00 | disposition home or self-care (01) ==
PROVIDERS: PCP Family Medicine; Visit Provider Nurse Practitioner Family
DX: R26.81 Unsteadiness on feet (principal); R41.0 Disorientation, unspecified
CPT/HCPCS: 93880

== ENCOUNTER 2024-11-06 10:31 | Outpatient (CLI) | payer MEDICARE, SELFPAY ==
--- NOTE | ~2024-11-06 | XR_ITS ---
3 VIEWS LUMBAR SPINE Ordering provider: PILOL Jiang History: . M54.16 - Radiculopathy, lumbar region . Comparison: March 27, 2012 FINDINGS: VERTEBRAL BODIES:Slight loss of volume anteriorly is seen in L1 which is chronic. No visible acute f racture or subluxation. Degenerative changes of the spine. DISK SPACES: Narrowing of the disc L2-L3 SOFT TISSUES: Normal. Bilateral hip arthroplasty. Pubic symphysitis. Bilateral sacroiliitis. IMPRESSION: No acute osseous abnormality lumbar spine. Degenerative changes of the spine. Degenerative disc disease at the level of L2-L3. Reviewed, dictated and finalized at location A. IMPRESSION: No acute osseous abnormality lumbar spine. Degenerative changes of the spine. Degenerative disc disease at the level of L2 -L3.
== END 2024-11-06 10:32 | disposition home or self-care (01) ==
LOC: GOSHIMG 10:31
PROVIDERS: PCP Family Medicine; Visit Provider Nurse Practitioner Family
DX: M47.816 Spondylosis without myelopathy or radiculopathy, lumbar region (principal); M51.369 Other intervertebral disc degeneration, lumbar region without mention of lumbar back pain or lower extremity pain
CPT/HCPCS: 72100

== ENCOUNTER 2025-02-18 10:28 | Outpatient (CLI) | payer MEDICARE, SELFPAY ==
--- NOTE | ~2025-02-18 | MR_ITS ---
MRI of the lumbar spine Clinical History: Radiculopathy Technique: Axial T2-weighted images, and sagittal T1-weighted, T2-weighted, and T2 fat-sat images wer e acquired. Findings: There is no fracture or subluxation of the lumbar spine. Vertebral bodies maintain normal h eight and alignment. No suspicious bone marrow signal abnormality seen. At L1-L2, there is no disc bulge or herniation. There is moderate facet arthropathy. No central canal stenosis or neural foraminal narrowing. At L2-L3, there is mild degenerative disc narrowing. There is minimal disc bulge with moderate facet arthropathy. No central canal stenosis. Probable minimal bilateral neural foraminal narrowing. At L3-L4, there is minimal disc bulge with moderate facet arthropathy. No central canal stenosis. The re is mild bilateral neural foraminal narrowing. At L4-L5, there is mild degenerative spurring with minimal disc bulge. There is moderate facet arthro chery. No central canal stenosis. There is moderate to advanced left neural foraminal narrowing, and severe right neural foraminal narrowing. At L5-S1, there is diffuse disc bulge with moderate facet arthropathy. No central canal stenosis. The re is mild to moderate right neural foraminal narrowing. Left neural foramen preserved. Paravertebral soft tissues are unremarkable. Impression: Multilevel neural foraminal narrowing, worst at L4-L5. Please see details above. Reviewed, dictated and finalized at [facility]. Impression: Multilevel neural foraminal narrowing, worst at L4-L5. Please see details above .
== END 2025-02-18 10:29 | disposition home or self-care (01) ==
LOC: GOSHIMG 10:28
PROVIDERS: PCP Family Medicine; Visit Provider Nurse Practitioner Family
DX: M48.061 Spinal stenosis, lumbar region without neurogenic claudication (principal); M48.07 Spinal stenosis, lumbosacral region
CPT/HCPCS: 72148

== ENCOUNTER 2025-06-16 11:35 | Outpatient (CLI) | payer MEDICARE, SELFPAY ==
[2025-06-16 13:17] LABS: Alanine Aminotransferase 75 U/L (6-50); Albumin Level 4.3 g/dL (3.5-5.1); Alkaline Phosphatase 78 U/L (38-126); Anion Gap 5 mmol/L (4-12); Aspartate Amino Transferase 60 U/L (17-59); Bilirubin,Total 1.1 mg/dL (0.2-1.3); Blood Urea Nitrogen 22 mg/dL (9-20); Calcium 9.1 mg/dL (8.4-10.2); Carbon Dioxide 30 mmol/L (22-30); Chloride 103 mmol/L (98-107); Estimated Glomerular Filt Rate > 60; Glucose 98 mg/dL (65-110); Potassium 4.7 mmol/L (3.4-5.0); Sodium 138 mmol/L (137-145); Total Protein 7.1 g/dL (6.3-8.2); Uric Acid 4.9 mg/dL (3.5-8.5)
[2025-06-16 14:09] LABS: Thyroid Stimulating Hormone 0.385 uIU/mL (0.465-4.680)
== END 2025-06-16 11:36 | disposition home or self-care (01) ==
LOC: ANHGOSHLAB 11:35
PROVIDERS: PCP Family Medicine; Visit Provider Family Medicine
DX: R74.8 Abnormal levels of other serum enzymes (principal); M10.071 Idiopathic gout, right ankle and foot; E03.9 Hypothyroidism, unspecified
CPT/HCPCS: 36415; 80053; 84443; 84550

== ENCOUNTER 2025-07-25 09:37 | Outpatient (CLI) | payer MEDICARE, SELFPAY ==
--- NOTE | ~2025-07-25 | CT_ITS ---
EXAMINATION: CT diagnostic chest w con DATE: 07/25/2025 10:02 INDICATION: Lung nodule TECHNIQUE: Computed tomography (CT) of the chest was performed with 100 cc Omnipaque 350 intravenous contrast. The dose-length product was 176.47 mGy-cm. Automated exposure control and iterative reconstruction technique were employed. COMPARISON: 07/01/2024, 07/03/2023 and 01/04/2023 FINDINGS: No significant change to 9 mm left upper lobe nodule with central calcification, consistent with chronic granulomatous disease. No endobronchial lesions. Dependent atelectasis. No focal airspace consolidation. Cardiomegaly. No significant vascular abnormality. Stable mediastinal lymphadenopathy, likely reactive. No new pulmonary nodules or masses. No pneumothorax. Moderate thoracic spondylosis. No focal lytic or blastic lesions. Severe lower cervical spondylosis. IMPRESSION: 1. Stable calcified granuloma left upper lobe measuring 9 mm, benign. 2: Stable mediastinal lymphadenopathy, likely reactive. Reviewed, dictated and finalized at location [facility] [employer]
--- OUTSIDE RECORDS SUMMARY | 2025-07-25 09:43 | XMS_ITS | Encounter Summary ---
Author Organization [facility] Address [address] [place] [address] Phone Care Team Providers Care Lab Head Name Role Phone Musa Cancino MD Primary Care Provider [phone] Andres Parker MD Primary Care Provider [phone] Encounter Details Date Type Department Care Team (Late st Contact Info) Description 02/10/2022 Patient Message [facility] Orthopaedic Surgery [address] [place] [address] Kavin Campo, DROP SHIPMENT CLERK [address] [place] [address] question Social History Tobacco Use [...] AM CDT Legal Sex Male 2:36 AM ASSEMBLY REPAIRER Gender Identity Not on file Sexual Orientation Straight 11/27/2018 11 :24 AM CDT documented as of this encounter Functional Status documented as of this encounter Plan of Treatment Upcoming Encounters Date Type Department Care Team (Late st Contact Info) Description 07/31/2025 11:15 AM ASSEMBLY REPAIRER Hospital Encounter [facility] Endoscopy at [facility] [address] [place] [address] Jacek Mahmood MD [address] [facility] [phone] [place] [address] 07/31/2025 11:15 AM ASSEMBLY REPAIRER - 07/31/2025 12:00 PM ASSEMBLY REPAIRER Surgery [facility] Endoscopy at [facility] [address] [place] [address] Jacek Mahmood MD [address] [facility] [phone] [place] [address] COLONOSCOPY Scheduled Procedures Name Priority Associated Diagnoses Date/Ti ny COLONOSCOPY Screening for malignant neoplasm of colon 07/31/2025 11:15 AM ASSEMBLY REPAIRER documented as of this encounter Visit Diagnoses Diagnosis Idiopathic peripheral neuropathy- Primary Unspecified hereditary and idiopathic peripheral neuropathy Pain of both heels Screening for malignant neoplasm of colon documented in this encounter Care Teams Lab Head Relationship Specialty Start Date End Date Musa Cancino MD [address] [place] [address] PCP - General 06/01/12 04/04/22 Andres Parker MD [address] [place] [address] PCP - General Family Medicine 04/05/22 documented as of this encounter
--- OUTSIDE RECORDS SUMMARY | 2025-07-25 09:43 | XMS_ITS | Encounter Summary ---
Author Organization [facility] Address [address] [place] [address] Phone Care Team Providers Care Weatherization Technician Name Role Phone Andres Parker MD Primary Care Provider [phone] Encounter Details Date Type Department Care Team (Late Contact Info) Description 10/24/2023 Orders Only [facility] [phone] Scanning, Provider Social History Tobacco Use Types [...] AM CDT Legal Sex Male 2:36 AM DIET KITCHEN COOK Gender Identity Not on file Sexual Orientation Straight 11/27/2018 11 :24 AM CDT documented as of this encounter Plan of Treatment Upcoming Encounters Date Type Department Care Team (Late Contact Info) Description 07/31/2025 11:15 AM DIET KITCHEN COOK Hospital Encounter [facility] Endoscopy at [place] [address] [place] [address] Jacek Mahmood MD [address] [facility] [phone] [place] [address] 07/31/2025 11:15 AM DIET KITCHEN COOK - 07/31/2025 12:00 PM DIET KITCHEN COOK Surgery [facility] Endoscopy at [facility] [address] [place] [address] Jacek Mahmood MD [address] [facility] [phone] [place] [address] COLONOSCOPY Scheduled Procedures Name Priority Associated Diagnoses Date/Ti me COLONOSCOPY Screening for malignant neoplasm of colon 07/31/2025 11:15 AM DIET KITCHEN COOK documented as of this encounter Procedures Procedure Name Priority Date/Time Associated Diagnosis Comments SCAN - RADIOLOGY/IMAGING 10/24/2023 documented in this encounter Results * SCAN - RADIOLOGY/IMAGING (10/24/2023) Anatomical Region Laterality Modality Other us Provider Scanning Final Result documented in this encounter Visit Diagnoses Not on filedocumented in this encounter Care Teams Weatherization Technician Relationship Specialty Start Date End Date Andres Parker MD PCP - General Family Medicine 04/05/22 documented as of this encounter
--- OUTSIDE RECORDS SUMMARY | 2025-07-25 09:43 | XMS_ITS | Encounter Summary ---
Author Organization [facility] Address [address] [place] [address] Phone Care Team Providers Care Collating Machine Operator Name Role Phone Musa Cancino MD Primary Care Provider [phone] Andres Parker MD Primary Care Provider [phone] Encounter Details Date Type Department Care Team (Late st Contact Info) Description 09/23/2014 Orders Only [facility] Medicine Neurology Outreach [address] [place] [address] Scanning, Provider Social History Tobacco Use Types Packs/Day Years Used Date Smoking Tobacco: Never Alcohol Use Standard Drinks/Week Comments No 0 (1 standard drink = 0.6 oz pur e alcohol) Sex and Gender Information Value Date Recorded Sex Assigned at Male 11/27/2018 11:24 AM CDT Legal Sex Male 2:36 AM TOBACCO STEMMER Gender Identity Not on file Sexual Orientation Straight 11/27/2018 11 :24 AM CDT documented as of this encounter Plan of Treatment Upcoming Encounters Date Type Department Care Team (Late st Contact Info) Description 07/31/2025 11:15 AM TOBACCO STEMMER Hospital Encounter [facility] Endoscopy at [facility] [address] [place] [address] Jacek Mahmood MD [address] [facility] [phone] [place] [address] 07/31/2025 11:15 AM TOBACCO STEMMER - 07/31/2025 12:00 PM TOBACCO STEMMER Surgery [facility] Endoscopy at [facility] [address] [place] [address] Jacek Mahmood MD [address] [facility] [phone] [place] [address] COLONOSCOPY Scheduled Procedures Name Priority Associated Diagnoses Date/Ti me COLONOSCOPY Screening for malignant neoplasm of colon 07/31/2025 11:15 AM TOBACCO STEMMER documented as of this encounter Procedures Procedure Name Priority Date/Time Associated Diagnosis Comments SCAN - OTHER ORDERS 09/23/2014 documented in this encounter Results * SCAN - OTHER ORDERS (09/23/2014) us Provider Scanning Final Result documented in this encounter Visit Diagnoses Not on filedocumented in this encounter Care Teams Collating Machine Operator Relationship Specialty Start Date End Date Musa Cancino MD [address] [place] [address] PCP - General 06/01/12 04/04/22 Andres Parker MD [address] [address] PCP - General Family Medicine 04/05/22 documented as of this encounter
--- OUTSIDE RECORDS SUMMARY | 2025-07-25 09:43 | XMS_ITS | Clinical Summary ---
Author Organization [facility] Address [address] [place] [address] Care Team Providers Care Bulk System Operator Name Role Phone Andres Parker MD Primary Care Provider [phone] [phone] Allergies Active Allergy Reactions Criticality Noted Date Comments Tetracycline Unknown,Rash High 10/22/2014 Pancreatitis Medications allopurinol (ZYLOPRIM) 300 mg tabletIndications :prevention of acute gout attack Take 0.5 tablets (150 mg total) by mouth every morning 8 Active clindamycin (CLEOCIN) 150 mg capsule Takes before dental appts 1 Active levothyroxine (SYNTHROID) 125 mcg tabletIndications :hypothyroidism Take 1 tablet (125 mcg total) by mouth marine fitter before breakfast 1 Active tadalafiL (CIALIS) 5 [...] as needed for indigestion or heartburn Active oxyBUTYnin XL (DITROPAN-XL) 10 mg 24 hr tabletIndications :Bladder Hyperactivity Take 1 tablet (10 mg total) by mouth daily 30 tablet 11 4 Active amoxicillin 500 mg capsule TKAE 4 CAPS 1 HOUR PRIOR TO APPOINTMENT 4 Active tavaborole 5 % solution with applicator APPLY TOPICALLY TO AFFECTED AREA OF THE TOENAILS 4 Active gabapentin (NEURONTIN) 300 mg capsuleIndication s:Idiopathic peripheral neuropathy Take 3 capsules (900 mg total) by mouth every morning AND 2 capsules (600 mg total) nightly. Do all this for 10 days. 50 capsule 5 Active tiZANidine (ZANAFLEX) 4 mg tablet TAKE 1 TABLET BY MOUTH EVERY DAY AT BEDTIME NEEDED FOR MUSCLE SPASMS [address] (CYMBALTA) 30 mg capsuleIndication s:Neuropathic Pain Take 3 capsules (90 mg total) by mouth every morning 270 capsule 3 5 026 Active clonazePAM (KlonoPIN) 2 mg tabletIndications :Motor Tic Disorder,tics Take 2 tablets (4 mg total) by mouth 2 (two) times a day as needed for seizures (take bid daily) 2 tabs in the morning and 2 tabs late afternoon. 360 tablet 1 5 026 Active gabapentin (NEURONTIN) 300 mg capsuleIndication s:Idiopathic peripheral neuropathy Take 2 capsules (600 mg total) by mouth 2 (two) times a day 360 capsule 1 5 Active Active Problems Problem Noted Date Diagnosed Date Benign prostatic hyperplasia 09/21/2023 Benign prostatic hyperplasia with urinary freque ncy 09/08/2023 Urinary frequency 09/08/2023 Benign prostatic hyperplasia with lower urinary tract symptoms 09/08/2023 Incomplete bladder emptying 09/08/2023 OAG (open angle glaucoma) suspect, low risk, koby ateral 07/19/2023 Assessment & Plan (01/14/2025 1:58 PM CDT): Moderate cd, now with borderline iop. CTM off drops for now. F/u in 6 mos for 24-2 VF + IOP ck. 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 Vitreous clump vs operculum superotemporal without overt retinal break but pigmentary changes. Attached 360 . Discussed R/B/A of laser retinopexy today and patient wishes to proceed. Laser retinopexy today Warning Sx RT/RD discussed Screening for malignant neoplasm of colon 2019 Overview (05/11/2020): Added automatically from request for surgery [id number] Idiopathic peripheral neuropathy 04/01/2020 Chronic pain of [...] Motor tic disorder 10/22/2014 Assessment & Plan (10/30/2024 5:18 PM BLOOD BANK MANAGER): Mr. Fitzgerald is a 69 y.o who presents for chronic tic disorder. He had onset of simple motor tics when he was 8 and then in his late teens/early twenties he began having a prominent painful sensory tic around his right eye with premonitory sensation/urges. Interestingly his motor and sensory tic have been exclusively on his right side. He has never had vocal tics therefore he does not meet Tourette syndrome diagnosis. 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 Furthermore, the painful sensation that also accompanies this would be odd. Another unusual aspect is that he appears to have some sensory tricks that help such as closing his eyes and applying pressure to his eyelid -- which would suggest dystonia. Yet, he does have a premonitory urge that accompanies the facial movements that started about age 8 and have continued throughout his life -- with some mild associated OCD features when much younger. Overall his atypical syndrome is still more consistent with a tic disorder. Overall both motor and sensory tics are reasonably responsive to clonazepam therefore we will continue on this regimen. Of note, his daytime sleepiness and worsening balance are likely exacerbated by or caused by clonazepam regimen. However, these are acceptable adverse effects balanced against the benefit that he has. For now we will monitor and should these symptoms worsen or affect his daily function we will consider a careful slow down titration of this regimen. Overall he is doing well. Recommendations: - Continue clonazepam 4mg twice daily (2 tabs BID) - Monitor daytime sleepiness and walking problems, should things worsen he can reach out and we can discuss current regimen - follow up with Dr Palomino in one year. Assessment & Plan (11/01/2023 6:27 PM BLOOD BANK MANAGER): Chronic tic disorder: He has simple motor [...] minimal/mild functional disability, so no need to roving changer at this time. Since he ran out [...] PM Berto Woods MD Movement Neurology Fellow [facility] in [place] Assessment & Plan (03/09/2023 2:36 PM CDT): [...] help. Assessment & Plan (10/19/2022 4:40 PM BLOOD BANK MANAGER): He has simple motor tics that exclusively [...] help Assessment & Plan (08/09/2022 4:40 PM BLOOD BANK MANAGER): He has simple motor (and likely sensory) [...] oculi Assessment & Plan (10/05/2021 3:56 PM BLOOD BANK MANAGER): He has chronic motor tics with prominent [...] tics. Assessment & Plan (10/14/2020 5:14 PM BLOOD BANK MANAGER): He has chronic motor tics with prominent [...] weeks. Assessment & Plan (09/30/2019 3:39 PM BLOOD BANK MANAGER): He has chronic motor tics with facial [...] 09/30/2019 Assessment & Plan (09/30/2019 2:40 PM BLOOD BANK MANAGER): He has chronic motor tics with facial [...] clonazepam. Assessment & Plan (09/24/2018 5:11 PM BLOOD BANK MANAGER): He has chronic motor tics with facial [...] Encounters Date Type Department Care Team Description 07/23/2025 Telephone [facility] Medicine Surgery [address] [facility] [facility] Floor 5 [place] [id number] Toshia Pike BS Surgery Confirmation (07/31/2025 Colonoscopy ) 07/22/2025 Telephone [facility] Medicine Surgery [address] [place] [address] Ramana Davisa, RMA Colonoscopy 07/04/2025 10:40 AM BLOOD BANK MANAGER Ancillary Procedure [facility] Medical Group Imaging at [address] [phone] Left foot pain 07/04/2025 10:30 AM BLOOD BANK MANAGER Office Visit [facility] Medical Group Sports Medicine and Primary Care at [address] [place] [phone] Andres Hairston DO Left foot pain (Primary Dx) 05/13/2025 1:00 PM CDT Office Visit [facility] Medicine Neuro Muscle [facility] Advanced Medicine 6th [place] [address] [place] [address] Leodan Mayers MD PhD Idiopathic peripheral neuropathy (Primary Dx); Radiculopathy, unspecified spinal region from Last 3 Months Immunizations Immunization Administration Dates Next Due Influenza, Quadrivalent, Rec ombinant, Egg Free, Preservative Free, Intramuscular 05/14/2020,06/21/2019 Pfizer SARS-CoV-2 Monovalent Vaccination (12+ Yrs) PURPLE 11/13/2020,11/13/2020,10/22/2020,10/22 Pneumococcal Conjugate PCV 13 02/03/2021, 019 ZOSTER LIVE 04/10/2017 ZOSTER Recombinant 09/13/2019,06/29/2019 Surgical History Surgery Date Site/Laterality Comments KNEE SURGERY Knee Surgery - (Added by TW Conv) SC LIGATION OF SPERM DUCT Surgery Vas Deferens [...] have a drink containing alc ohol? Never 12/05/2023 Average Number of Drinks Not on file 024 Q3: How often do you have si [...] AM CDT Legal Sex Male 2:36 AM BLOOD BANK MANAGER Gender Identity Not on file Sexual Orientation Straight 11/27/2018 11 :24 AM CDT Last Filed Vital Signs Vital Sign Reading Time Taken Comments Blood Pressure 129/76 07/04/2025 10:56 AM BLOOD BANK MANAGER Pulse 50 07/04/2025 10:56 AM BLOOD BANK MANAGER Temperature 36.5 C (97.7 F) 2024 2:05 PM BLOOD BANK MANAGER Respiratory Rate 16 2024 2:05 PM BLOOD BANK MANAGER Oxygen Saturation 95% 2024 2:05 PM BLOOD BANK MANAGER Inhaled Oxygen Concentration - - Weight 87.7 kg (193 lb 6.4 oz) 07/04/2025 10:56 AM BLOOD BANK MANAGER Height 180.3 cm (5' 11) 07/04/2025 10:56 AM BLOOD BANK MANAGER Body Mass Index 26.97 07/04/2025 10:56 AM BLOOD BANK MANAGER Plan of Treatment Upcoming Encounters Date Type Department Care Team (Late st Contact Info) Description 07/31/2025 11:15 AM BLOOD BANK MANAGER Hospital Encounter [facility] Endoscopy at [address] [address] Jacek Mahmood MD [address] [facility] [phone] [place] [address] 07/31/2025 11:15 AM BLOOD BANK MANAGER - 07/31/2025 12:00 PM BLOOD BANK MANAGER Surgery [facility] Endoscopy at [address] [address] Jacek Mahmood MD [address] [facility] [phone] [place] [address] COLONOSCOPY Scheduled Procedures Name Priority Associated Diagnoses Date/Ti me COLONOSCOPY Screening for malignant neoplasm of colon 07/31/2025 11:15 AM BLOOD BANK MANAGER Health Maintenance Due Date Last Done Comments Depression Screening 1955 Hepatitis C Screening 1955 Prostate Cancer Screening-PSA 1955 Hepatitis B Screening 1973 Well Visit 65+ 2020 DTaP/Tdap/Td Vaccine (2 - Td or Tdap) 01/07/2024 01/06/2014, 09/29/2004 Covid-19 Vaccine (2024-2 6 season) 2025 07/01/2021, 11/13/2020, 11/13/2020, Additional history exists Influenza Vaccine (#1) 2025 4, 06/09/2023, 07/01/2021, Additional history exists Fall Risk Assessment 2025 2024 Colon Cancer Screening-Colonoscopy 07/30/2030 07/30/2020, 06/28/2013 Zoster Vaccine Completed 09/13/2019, 09/2018, 04/10/2017 Colon Cancer Screening-CT Colonography Discontinued 07/30/2020, 06/28/2013 Colon Cancer Screening-DNA Stool Discontinued 07/30/20, 06/28/2013 Colon Cancer Screening-FIT Discontinued 07/30/2020, Colon Cancer Screening-Sigmoidoscopy Discontinued 07/30/2020, 06/28/2013 Pneumococcal vaccine 65+ Completed 021, 02/03/2021, 02/08/2019 Medical Devices Implanted Type Area Lockstitch Lining Setter Device Identifier Shelf Expiration Date Model / Serial / Lot Rt Total Knee Arthroplasty Right: Knee Bilateral Total Hip Arthroplasty Bilateral: Hip [employer] [id number] Progrip 15x9cm Self Circular Knitter Rectangle Mesh Surgical Polyester Hernia - [id number] Implanted:Qty: 1 on 02/25/2021 by Manny Bhatti MD at [facility] Left: Inguinal [employer] 10/25/2025 [id number] / / [id number] [employer] Prosthesis Uro Prostate Urethra Cartridge Urolift 2 Ul2-C - [id number] Implanted:Qty: 1 on 12/05/2023 at [facility] N/A: Prostate [employer] 02/28/2025 UL2-C / / [id number] [employer] Prosthesis Uro Prostate Urethra Cartridge Urolift 2 Ul2-C - [id number] Implanted:Qty: 1 on 12/05/2023 at [facility] N/A: Prostate [employer] 02/22/2025 UL2-C / / [id number] [employer] Prosthesis Uro Prostate Urethra Cartridge Urolift 2 Ul2-C - [id number] Implanted:Qty: 1 on 12/05/2023 at [facility] N/A: Prostate [employer] 02/28/2025 UL2-C / / [id number] [employer] Prosthesis Uro Prostate Urethra Cartridge Urolift 2 Ul2-C - [id number] Implanted:Qty: 1 on 12/05/2023 at [facility] N/A: Prostate [employer] 02/22/2025 UL2-C / / [id number] [employer] Prosthesis Uro Prostate Urethra Cartridge Urolift 2 Ul2-C - [id number] Implanted:Qty: 1 on 12/05/2023 at [facility] N/A: Prostate [employer] 02/28/2025 UL2-C / / [id number] Procedures Procedure Name Priority Date/Time Associated Diagnosis Comments XR FOOT LEFT 3 OR MORE VIEWS Schedule Routine, Read Routine (OP Routine) 07/04/2025 10:45 AM BLOOD BANK MANAGER Left foot pain COLONOSCOPY 07/30/2020 10:34 AM BLOOD BANK MANAGER from Last 3 Months or Most Recently Relevant to Health Maintenance Results * XR Foot Left 3 or More Views (07/04/2025 10:45 AM BLOOD BANK MANAGER) Anatomical Region Laterality Modality Lower Extremities, Foot Left Digital Radiography 07/04/2025 11:3 3 AM BLOOD BANK MANAGER Impressions 07/04/2025 11:33 AM BLOOD BANK MANAGER No acute osseous abnormality. Similar-appearing scattered degenerative changes, enthesopathic changes, and hallux valgus deformity. Electronically signed by: Blayne Franco M.D. Narrative 07/04/2025 11:33 AM BLOOD BANK MANAGER EXAMINATION/TECHNIQUE: XR FOOT LEFT 3 OR MORE VIEWS 3 radiographic views of the foot. HISTORY: pain COMPARISON: 07/19/2024 FINDINGS: BONES/JOINTS: Scattered mild degenerative changes. Similar-appearing hallux valgus deformity. Similar-appearing enthesopathic changes of the calcaneus. SOFT TISSUES: Unremarkable. Procedure Note Blayne Franco MD - 07/04/2025 EXAMINATION/TECHNIQUE: XR FOOT LEFT 3 OR MORE VIEWS 3 radiographic views of the foot. HISTORY: pain COMPARISON: 07/19/2024 FINDINGS: BONES/JOINTS: Scattered mild degenerative changes. Similar-appearing hallux valgus deformity. Similar-appearing enthesopathic changes of the calcaneus. SOFT TISSUES: Unremarkable. IMPRESSION: No acute osseous abnormality. Similar-appearing scattered degenerative changes, enthesopathic changes, and hallux valgus deformity. Electronically signed by: Blayne Franco M.D. us Andres Hairston DO IMG XR PROCEDURES Laina l Result * COLONOSCOPY (07/30/2020 10:34 AM BLOOD BANK MANAGER) Anatomical Region Laterality Modality Other Narrative Procedure Note Jacek Mahmood MD - 07/30/2020 10:34 AM CST [facility] Patient Name: Shaggy Allison Procedure Date: 07/30/2020 10:34 AM Date of : 1955 Admit Type: Outpatient Age: 64 Gender: Male Attending MD: Jacek Mahmood M.D. Room: [facility] ENDOSCOPY ROOM 02 Note Status: Finalized [...] The scope was passed under direct vision.The [id number] Colonoscope was introduced through the anus and [...] On: 07/30/2020 10:34 AM Recognized by the [employer] for promoting quality in endoscopy Jacek Mahmood MD ENDOSCOPY PROCEDURES Final R esult from Last 3 Months or Most Recently Relevant to Health Maintenance Insurance [facility] MEDICARE GOLD [employer] CHOICE MEDICARE PPO AET MEDICARE GOLD Advance Directives For more information, please contact: [phone] * Full Code (Latest Code Status on File) Date Activated Date Inactivated Comments 07/30/2020 9:52 AM 07/30/2020 4:22 PM Care Teams Bulk System Operator Relationship Specialty Start Date End Date Andres Parker MD PCP - General Family Medicine 04/05/22
--- OUTSIDE RECORDS SUMMARY | 2025-07-25 09:43 | XMS_ITS | Clinical Summary ---
Author Organization [facility] Desiree Banegas Address [address] [place] [address] Care Team Providers Care Fabricator Special Items Name Role Phone Andres Parker MD Primary Care Provider +1- [phone] Allergies Active Allergy Reactions Criticality Noted Date [...] 1 Tablet by mouth daily. Active omega 7-ods-pjm-fish oil 100-160-1,000 mg Capsule Take 2 Tablets [...] Encounters Date Type Department Care Team Description 06/18/2025 External Device Data ST[facility] ABSTRACTION Provider, Abstract 05/06/2025 External Device Data [facility] ABSTRACTION Provider, Abstract from Last 3 Months Social History Tobacco [...] Comments Blood Pressure 131/80 07/24/2024 12:08 PM STUDENT LIAISON OFFICER Pulse 46 07/24/2024 12:08 PM STUDENT LIAISON OFFICER Temperature 36.7 C (98.1 F) 07/10/2023 10:55 AM STUDENT LIAISON OFFICER Respiratory Rate 16 07/24/2024 12:08 PM STUDENT LIAISON OFFICER Oxygen Saturation 96% 07/24/2024 12:08 PM STUDENT LIAISON OFFICER Inhaled Oxygen Concentration - - Weight 86.3 kg (190 lb 3.2 oz) 07/24/2024 12:08 PM STUDENT LIAISON OFFICER Height 180.3 cm (5' 11) 06/06/2022 2:57 PM CDT Body Mass Index 26.53 06/06/2022 2:57 PM CDT Plan of Treatment Upcoming Encounters Date Type Department Care Team (Late st Contact Info) Description 08/01/2025 10:00 AM STUDENT LIAISON OFFICER Office Visit [facility] Oncology and Hematology - [place] [address] [place] [address] Gonzalez Houser MD [address] [facility] [address] [place] [address] Health Maintenance Due Date Last Done Comments DTAP/TDAP/TD VACCINES (1 - Tdap) 1974 FIT-DNA Q 3 years 2000 FIT/FOBT Q 1 year 2000 Flex Sig/CT Colonography Q 5 years 2000 PNEUMOCOCCAL VACCINE 50+ YEA RS (2 of 2 - PCV20 or PCV21) 02/03/2022 02/03/2021, 02/08/2019 INFLUENZA VACCINE (#1) 2025 05/14/2020, 2018 COVID-19 Vaccine (3 - season) 2025, 10/22/2020 COLORECTAL SCREENING 07/30/2030 07/30/2020, 07/30/20 Colorectal Cancer Screening 07/30/2030 RSV VACCINE (60+ or ) (1 - 1-dose 75+ series) 2030 ZOSTER VACCINE Completed 09/13/2019, 09/2018, 04/10/2017 Insurance Care Teams Fabricator Special Items Relationship Specialty Start Date End Date Andres Parker MD PCP - General Family Practice 06/06/22
[2025-07-25 09:59] LABS: Estimated Glomerular Filt Rate 60
== END 2025-07-25 09:38 | disposition home or self-care (01) ==
PROVIDERS: PCP Family Medicine; Visit Provider Internal Medicine Hematology & Oncology
DX: R91.1 Solitary pulmonary nodule (principal); R59.0 Localized enlarged lymph nodes
CPT/HCPCS: 71260; Q9967

== ENCOUNTER 2025-08-01 09:51 | Outpatient (CLI) | payer MEDICARE, SELFPAY ==
[2025-08-01 10:17] LABS: Hematocrit 44.0 % (42.0-52.0); Hemoglobin 14.9 g/dL (14.0-18.0); Immature Granulocyte Percent A 0.5 % (0-0.5); Lymphocytes Absolute Auto 1.43 K/mm3 (0.9-3.2); Mean Corpuscular HGB Conc 33.9 g/dl (32-36); Mean Corpuscular Hemoglobin 29.9 pg (26-34); Mean Corpuscular Volume 88.4 fl (80-100); Nucleated Red Blood Cells Absolute Auto 0.000 K/mm3 (0.0-0.012); Nucleated Red Blood Cells Perc 0.0 % (0.0-0.2); Platelet Count Result 177 k/mm3 (150-375); Red Blood Count 4.98 M/mm3 (4.6-6.20); White Blood Count 5.9 K/mm3 (4.5-10.0)
[2025-08-01 10:20] LABS: Blood Urea Nitrogen 19 mg/dL (8-26); Carbon Dioxide 30 mmol/L (22-30); Chloride 101 mmol/L (98-109); Estimated Glomerular Filt Rate 60; Glucose 86 mg/dL (70-105); Ionized Calcium (POC) 1.23 mmol/L (1.11-1.31); Potassium 4.2 mmol/L (3.5-4.9); Sodium 142 mmol/L (138-146)
[2025-08-01 11:16] LABS: Alanine Aminotransferase 29 U/L (6-50); Albumin Level 4.0 g/dL (3.5-5.1); Alkaline Phosphatase 77 U/L (38-126); Anion Gap 3 mmol/L (4-12); Aspartate Amino Transferase 35 U/L (17-59); Bilirubin,Total 0.8 mg/dL (0.2-1.3); Blood Urea Nitrogen 18 mg/dL (9-20); Calcium 9.2 mg/dL (8.4-10.2); Carbon Dioxide 33 mmol/L (22-30); Chloride 103 mmol/L (98-107); Estimated Glomerular Filt Rate > 60; Glucose 86 mg/dL (65-110); Potassium 4.2 mmol/L (3.4-5.0); Sodium 139 mmol/L (137-145); Total Protein 6.9 g/dL (6.3-8.2)
== END 2025-08-01 09:52 | disposition home or self-care (01) ==
LOC: ANHLAB 09:52
PROVIDERS: PCP Family Medicine; Visit Provider Internal Medicine Hematology & Oncology
DX: R61 Generalized hyperhidrosis (principal)
CPT/HCPCS: 36415; 80047; 80053; 85025